=== PATIENT | female | born 1940 | race Caucasian/White ===

== ENCOUNTER 2022-10-26 12:40 | Outpatient (REF) | payer MEDICARE, SELFPAY ==
[2022-10-26 13:17] LABS: Basophils Absolute Auto 0.05 K/uL (0.00-0.30); Basophils Percent Auto 0.8 % (0.0-3.0); Eosinophils Absolute Auto 0.23 K/uL (0.00-0.50); Eosinophils Percent Auto 3.6 % (0.0-7.0); Hematocrit 39.2 % (33.0-51.0); Hemoglobin* 12.9 gm/dL (12.0-16.0); Immature Granulocytes Abs Auto 0.01 K/uL (0.00-0.30); Immature Granulocytes Pct Auto 0.2 %; Lymphocytes Percent Auto 13.4 % (20-44); Mean Corpuscular HGB Conc 33 gm/dL (32-36); Mean Corpuscular Hemoglobin 32 pg (26-34); Mean Corpuscular Volume 98 fL (80-100); Monocytes Percent Auto 11.7 % (0.0-11.0); Neutrophils Absolute Auto 4.47 K/uL (1.7-7.0); Neutrophils Percent Auto 70.3 % (42.0-72.0); Platelet Count* 272 K/uL (140-440); RDW Coefficient of Variation % 13.7 % (11.5-15.5); White Blood Count* 6.35 K/uL (4.50-11.00)
[2022-10-26 13:18] LABS: Albumin* 4.1 g/dL (3.3-5.0); Chloride* 101 mmol/L (96-114)
[2022-10-26 13:19] LABS: Potassium* 5.4 mmol/L (3.6-5.1); Sodium* 136 mmol/L (135-149)
[2022-10-26 13:21] LABS: Aspartate Amino Transferase* 48 U/L (12-35); Bilirubin Total* 1.8 mg/dL (0.1-1.5); Blood Urea Nitrogen* 30 mg/dL (7-30); Carbon Dioxide* 28 mmol/L (20-32); Creatinine* 1.2 mg/dL (0.5-1.5); Estimated Glomerular Filt Rate 45 ml/min; Total Protein* 7.2 g/dL (6.0-8.3)
[2022-10-26 13:22] LABS: Alanine Aminotransferase* 25 U/L (4-35); Alkaline Phosphatase* 294 U/L (40-150); Calcium* 9.3 mg/dL (8.4-10.6); Glucose* 104 mg/dL (60-115)
[2022-10-26 13:32] LABS: Slide Review Reflex No
== END 2022-10-26 12:41 | disposition home or self-care (01) ==
LOC: NPINS 12:40
PROVIDERS: PCP Family Medicine; Visit Provider Internal Medicine
DX: I48.20 Chronic atrial fibrillation, unspecified (principal); I42.8 Other cardiomyopathies
CPT/HCPCS: 80053; 85025

== ENCOUNTER 2022-12-16 04:08 | Outpatient (CLI) | payer MEDICARE, SELFPAY | END 2022-12-16 04:09 | disposition home or self-care (01) | LOC: AMB 12-18 09:47 | PROVIDERS: PCP Family Medicine; Visit Provider Family Medicine | DX: R53.1 Weakness (principal); R20.0 Anesthesia of skin; R20.2 Paresthesia of skin | CPT/HCPCS: A0425; A0427 ==

== ENCOUNTER 2022-12-16 04:56 | Emergency (ER) | payer MEDICARE, SELFPAY ==
[2022-12-16 05:00] VITALS: BP 123/72; PULSE 80; RESP 16; TEMP 36.5; O2SAT 99
--- NOTE | 2022-12-16 05:20 | ED.GENADULT ---
HPI - General Adult General Chief complaint: Weakness Stated complaint: LT arm numb Time Seen by Provider: 12/16/22 05:08 Source: patient and EMS Mode of arrival: EMS History of Present Illness HPI narrative: 82-year-old female presents to the emergency department with feeling of numbness and inability to work her fingers on her left hand. Last known well at midnight, arrives at 5:00 a.m.. Awoke at 2:00 a.m. a notice symptoms. Has not taken aspirin or any other interventions. She does have a known history of AFib, no prior history of stroke. She has been off of her Eliquis for the last couple of months due to concerns with a GI bleed. She actually has a colonoscopy scheduled for 3 days from now. No chest pain, no new fall, trauma or injury. No vision changes no symptoms in the right arm or either leg. No recent illness, fever. No confusion, no speech changes. No prior history of similar symptoms. I evaluated patient and just as I was coming to put in orders received a call that our CT scanner had just went down and is anticipated to be down for some time. We had been having some intermittent issues with this. Because of this I talked to the patient and do feel like time lead this is of the essence. She is not in a thrombosed lytic window and her NIH scale would only be around 1, but I do think that she needs a CT angio and further workup. Patient is agreeable to transfer. Since her cardiology team works out of [email or web address], she requests [facility]. I call right away for transfer. This took about 20-25 minutes to coordinate. I know her well from her baseline as she was a previous patient of mine in the clinic. Past medical history notable for AFib, hypothyroidism, cardiomyopathy, mitral valve heart disease, chronic congestive heart failure, restless leg syndrome. She has an ICD placed. Home medications currently aspirin 81 once daily, gabapentin for restless legs, Mirapex, simvastatin, spironolactone, torsemide and potassium. She also has midodrine from Cardiology. Allergies are to spironolactone causing hyperkalemia repair in all causing nausea sulfas causing swelling of the feet and a rash and contrast dye causing kidney injury. Socially she is a nonsmoker, still lives independently in [place]. No alcohol use. Related Data Home Medications Medication Instructions Recorded Confirmed aspirin 81 mg tablet,delayed 81 mg PO QDAY 07/23/22 11/26/22 release (Adult Low Dose Aspirin) betamethasone dipropionate 0.05 % 1 applic topical BID PRN 07/23/22 11/26/22 topical cream potassium chloride 20 mEq 20 meq PO BID 07/23/22 11/26/22 tablet,extended release(part/cryst) (Klor-Con M) pramipexole 0.5 mg tablet See Rx Instructions PO .Bedtime as 07/23/22 11/26/22 needed PRN simvastatin 20 mg tablet 20 mg PO QDAY 07/23/22 11/26/22 spironolactone 25 mg tablet 12.5 mg PO DAILY 07/23/22 11/26/22 midodrine 10 mg tablet 10 mg PO TID 11/26/22 torsemide 20 mg tablet 40 mg PO DAILY 11/26/22 11/26/22 Previous Rx's Medication Instructions Recorded gabapentin 100 mg capsule See Rx Instructions .Route 10/09/22 .COMPLEX #90 caps Allergies Allergy/AdvReac Type Severity Reaction Status Date / Time Sulfa (Sulfonamide Allergy Severe feet Verified 11/26/22 14:44 Antibiotics) swelling and rash Iodinated Contrast Media AdvReac Severe WIN Verified 11/26/22 14:44 ropinirole AdvReac Intermediate Nausea Verified 11/26/22 14:44 spironolactone AdvReac Intermediate hyperkalemi Verified 11/26/22 14:44 a [facility] Medical History Restless leg syndrome Surgical History History of atrioventricular paula ablation Status post cholecystectomy Status post hysterectomy with oophorectomy Family History Sister Depression Leukemia Brother Depression Colon cancer Family/Other Hypertrophic cardiomyopathy Melanoma Stroke Mother Colon cancer Social History Narrative: does not do illicit drugs, , nonsmoker, occasional alcohol consumption Smoking Status: Former smoker Second hand tobacco smoke exposure: No How often do you have a drink containing alcohol: never AUDIT-C Alcohol total score: 0 Non-prescribed substance use: denies use Exam Const: Vital Signs, click to edit/add: Vital Signs - 24 hr 12/16/22 05:00 12/16/22 05:35 Temperature 97.7 F 97.8 F Pulse Rate [Left P ulse Oximeter] 80 82 Respiratory Rate 16 16 Blood Pressure [Ri ght Upper Arm] 123/72 103/67 Pulse Oximetry 99 98 Oxygen Delivery Me thod Room Air Room Air Documenting provider has reviewed patient's vital signs: yes Common normals: no apparent distress and alert General appearance: cooperative, comfortable and well kempt Orientation/consciousness: Yes awake HENMT: Common normals: normocephalic and head/scalp atraumatic Head and scalp: normocephalic and atraumatic Mouth: oral and palatal mucosa normal Throat: posterior oropharynx normal Eye: Common normals: PERRL, EOMs intact bilaterally and normal visual osuna by confrontation Pupil: PERRL Neck & C-Spine: Common normals: full ROM and no lymphadenopathy Resp: Common normals: normal respiratory effort, no use of accessory muscles and clear to auscultation bilaterally Effort & inspection: able to speak in complete sentences Auscultation: clear to auscultation bilaterally Cardio: Common normals: regular rate and regular rhythm Rate: regular rate Rhythm: regular rhythm Other: Rhythm is regular today, loud blowing mid systolic murmur, suspecting mitral, but have not had time to review echo. GI: Common normals: Normal to inspection, nondistended, normoactive bowel sounds present, soft to palpation, no hepatosplenomegaly and no masses Palpation: soft and no hepatosplenomegaly Extremity: Other: Trace edema, similar to baseline. Neuro: Mounika Coma Scale: document GCS findings [place] coma scale eye opening: Spontaneous (4) [place] coma scale verbal response: Orientated (5) Mounika coma scale motor response: Obey commands (6) [place] coma scale total score: 15 Sensorium/orientation: awake and alert Cranial nerves: CN normal except as noted Coordination/balance: Normal rapid alternating movements of the distal lower extremity present (Neuro) Speech: speech normal Motor exam: no tremor noted and no movement abnormalities noted Coordination: rapid alternating movement LE normal Other: Large motor groups of the upper extremities are normal. Fine motor movement including rapid alternating movements of the left hand and fingers are abnormal. The movements are slow and clunky, uncoordinated compared to the opposite right side. She perceives her sensation to be less. 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 She has a small amount of drift on the left arm but it does not completely had the bed. Psych: Common normals: speech normal Appearance: well kempt Attitude: engaged Speech: normal speech Mood and affect: euthymic mood Insight: insight good Judgement: judgment good Skin: Common normals: no rashes or lesions noted General skin exam: no rashes or lesions noted Course Vital Signs Vital signs: Initial Vital Signs Temperature 97.7 F 12/16/22 05:00 Temperature Source Temporal Artery Scan 12/16/22 05:00 Pulse Rate 80 12/16/22 05:00 Pulse Rhythm 12/16/22 05:00 Respiratory Rate 16 12/16/22 05:00 Blood Pressure 123/72 12/16/22 05:00 Blood Pressure Mean 89 12/16/22 05:00 Blood Pressure Position Semi-Fowlers 12/16/22 05:00 Pulse Oximetry 99 12/16/22 05:00 Oxygen Delivery Method 12/16/22 05:00 Vital Signs Temperature 97.7 F 12/16/22 05:00 Pulse Rate 80 12/16/22 05:00 Respiratory Rate 16 12/16/22 05:00 Blood Pressure 123/72 12/16/22 05:00 Pulse Oximetry 99 12/16/22 05:00 Oxygen Delivery Method 12/16/22 05:00 Temperature 97.8 F 12/16/22 05:35 Pulse Rate 82 12/16/22 05:35 Respiratory Rate 16 12/16/22 05:35 Blood Pressure 103/67 12/16/22 05:35 Pulse Oximetry 98 12/16/22 05:35 Oxygen Delivery Method 12/16/22 05:35 Medical Decision Making MDM Narrative Medical decision making narrative: Brought initial exam, revealing suspected deficits in the left hand, NIH would only be about 1. She is not in the obvious window for thrombolytics. She needs a CT angio. Our CT scanner has just gone down and we do not suspect that it will be up shortly. I discussed the risks and benefits of transfer. I do think she would benefit from multidisciplinary care and insight from her clinical pharmacologist. Because of this, I have requested tertiary care center and she is agreeable, prefers [facility] as her cardiology team is based out of this facility. I am not giving additional aspirin or blood thinners until we have more information, especially in the setting of suspected recent GI bleed. She understands this. [facility] and [facility] have accepted transfer for further workup. Lab Data Lab results reviewed: Yes I reviewed the patient's lab results Lab results narrative: All labs were back after transfer. Labs: Lab Results 12/16/22 12/16/22 12/16/22 Range/Units 05:16 05:25 05:25 WBC 5.77 (4.50-11.00) K/uL RBC 3.88 L (4.00-5.20) m/uL Hgb 12.2 (12.0-16.0) gm/dL Hct 37.2 (33.0-51.0) % MCV 96 (80-100) fL MCH 31 (26-34) pg MCHC 33 (32-36) gm/dL RDW Coeff of Ran 14.5 (11.5-15.5) % Plt Count 184 (140-440) K/uL Neut % (Auto) 74.7 H (42.0-72.0) % Lymph % (Auto) 10.2 L (20-44) % Montgomery % (Auto) 10.7 (0.0-11.0) % Eos % (Auto) 3.3 (0.0-7.0) % Baso % (Auto) 0.9 (0.0-3.0) % Neut # (Auto) 4.30 (1.7-7.0) K/uL Lymph # (Auto) 0.60 L (0.90-2.90) K/uL Montgomery # (Auto) 0.60 (0.00-0.90) K/UL Eos # (Auto) 0.19 (0.00-0.50) K/uL Baso # (Auto) 0.05 (0.00-0.30) K/uL INR 1.14 H (0.91-1.10) Sodium (135-149) mmol/L Potassium (3.6-5.1) mmol/L Chloride (96-114) mmol/L Carbon Dioxide (20-32) mmol/L BUN (7-30) mg/dL Creatinine (0.5-1.5) mg/dL Estimated GFR ml/min Glucose (60-115) mg/dL Calcium (8.4-10.6) mg/dL Troponin I (0.01-0.04) ng/mL C-Reactive Protein (0.5-1.0) mg/dL POC Troponin I 0.07 H (0.01-0.04) ng/ml 12/16/22 Range/Units 05:25 WBC (4.50-11.00) K/uL RBC (4.00-5.20) m/uL Hgb (12.0-16.0) gm/dL Hct (33.0-51.0) % MCV (80-100) fL MCH (26-34) pg MCHC (32-36) gm/dL RDW Coeff of Ran (11.5-15.5) % Plt Count (140-440) K/uL Neut % (Auto) (42.0-72.0) % Lymph % (Auto) (20-44) % Montgomery % (Auto) (0.0-11.0) % Eos % (Auto) (0.0-7.0) % Baso % (Auto) (0.0-3.0) % Neut # (Auto) (1.7-7.0) K/uL Lymph # (Auto) (0.90-2.90) K/uL Montgomery # (Auto) (0.00-0.90) K/UL Eos # (Auto) (0.00-0.50) K/uL Baso # (Auto) (0.00-0.30) K/uL INR (0.91-1.10) Sodium 134 L (135-149) mmol/L Potassium 4.5 (3.6-5.1) mmol/L Chloride 99 (96-114) mmol/L Carbon Dioxide 27 (20-32) mmol/L BUN 37 H (7-30) mg/dL Creatinine 1.6 H (0.5-1.5) mg/dL Estimated GFR 32 ml/min Glucose 108 (60-115) mg/dL Calcium 9.1 (8.4-10.6) mg/dL Troponin I 0.08 H* (0.01-0.04) ng/mL C-Reactive Protein 0.5 (0.5-1.0) mg/dL POC Troponin I (0.01-0.04) ng/ml Discharge Plan Discharge Clinical Impression: Left hand weakness Patient Disposition: Xfer Other Discharge Location: [facility] Condition: Stable Prescriptions: No Action pramipexole 0.5 mg tablet See Rx Instructions PO .Bedtime as needed PRN Rx Instructions: 1-2 tabs orally BEDTIME NEEDED PRN; aspirin [Adult Low Dose Aspirin] 81 mg tablet,delayed release (DR/EC) 81 mg PO QDAY spironolactone 25 mg tablet 12.5 mg PO DAILY simvastatin 20 mg tablet 20 mg PO QDAY potassium chloride [Klor-Con M20] 20 mEq tablet,ER particles/crystals 20 meq PO BID betamethasone dipropionate 0.05 % cream 1 applic topical BID PRN torsemide 20 mg tablet 40 mg PO DAILY midodrine 10 mg tablet 10 mg PO TID gabapentin 100 mg capsule See Rx Instructions .ROUTE .COMPLEX Qty: 90 1RF Dose Instruction: TAKE 1-2 CAPSULES BY MOUTH AT BEDTIME NEEDED FOR NEOROPATHY Rx Instructions: TAKE 1-2 CAPSULES BY MOUTH AT BEDTIME NEEDED FOR NEOROPATHY Stand Alone Forms: MyHealth Info Instructions
[2022-12-16 05:33] LABS: Basophils Absolute Auto 0.05 K/uL (0.00-0.30); Basophils Percent Auto 0.9 % (0.0-3.0); Eosinophils Absolute Auto 0.19 K/uL (0.00-0.50); Eosinophils Percent Auto 3.3 % (0.0-7.0); Hematocrit 37.2 % (33.0-51.0); Hemoglobin* 12.2 gm/dL (12.0-16.0); Immature Granulocytes Abs Auto 0.01 K/uL (0.00-0.30); Immature Granulocytes Pct Auto 0.2 %; Lymphocytes Percent Auto 10.2 % (20-44); Mean Corpuscular HGB Conc 33 gm/dL (32-36); Mean Corpuscular Hemoglobin 31 pg (26-34); Mean Corpuscular Volume 96 fL (80-100); Monocytes Percent Auto 10.7 % (0.0-11.0); Neutrophils Percent Auto 74.7 % (42.0-72.0); Platelet Count* 184 K/uL (140-440); RDW Coefficient of Variation % 14.5 % (11.5-15.5); Red Blood Count 3.88 m/uL (4.00-5.20); White Blood Count* 5.77 K/uL (4.50-11.00)
[2022-12-16 05:35] VITALS: BP 103/67; PULSE 82; RESP 16; TEMP 36.6; O2SAT 98
[2022-12-16 05:37] LABS: Slide Review Reflex No
[2022-12-16 05:39] LABS: Troponin, Point-of-Care* 0.07 ng/ml (0.01-0.04)
--- NOTE | 2022-12-16 05:44 | ED.NURSE ---
Pt left by EMS to [facility].
[2022-12-16 05:46] LABS: Chloride* 99 mmol/L (96-114); Potassium* 4.5 mmol/L (3.6-5.1); Sodium* 134 mmol/L (135-149)
[2022-12-16 05:49] LABS: Creatinine* 1.6 mg/dL (0.5-1.5); Estimated Glomerular Filt Rate 32 ml/min; INR 1.14 (0.91-1.10); Prothrombin Time 15.3 Seconds
[2022-12-16 05:50] LABS: Blood Urea Nitrogen* 37 mg/dL (7-30); Calcium* 9.1 mg/dL (8.4-10.6); Carbon Dioxide* 27 mmol/L (20-32); Glucose* 108 mg/dL (60-115)
--- NOTE | 2022-12-16 05:50 | ED.NURSE ---
pt arrived via ambulance. after MD evaluation, stroke alert. CT down and was unable to reboot. Pt transported to [place] emergently. RN to RN report given to [facility]. Paperwork faxed to [facility].
[2022-12-16 05:53] LABS: C Reactive Protein* 0.5 mg/dL (0.5-1.0)
[2022-12-16 06:04] LABS: Troponin I* 0.08 ng/mL (0.01-0.04)
--- NOTE | 2022-12-16 06:06 | ED.NURSE ---
Pt daughter Nyla updated.
== END 2022-12-16 06:09 | disposition other institution (70) ==
PROVIDERS: Emergency Provider Family Medicine; PCP Family Medicine
DX: R20.0 Anesthesia of skin (principal); Z13.0 Encounter for screening for diseases of the blood and blood-forming organs and certain disorders involving the immune mechanism
CPT/HCPCS: 36415; 80048; 84484; 85025; 85610; 86140; 99283

== ENCOUNTER 2022-12-16 05:33 | Outpatient (CLI) | payer MEDICARE, SELFPAY | END 2022-12-16 05:34 | disposition home or self-care (01) | LOC: AMB 12-18 09:53 | PROVIDERS: PCP Family Medicine; Visit Provider Family Medicine | DX: R53.1 Weakness (principal) | CPT/HCPCS: A0425; A0426; A0427 ==

== ENCOUNTER 2023-05-02 11:35 | Emergency (ER) | payer MEDICARE, SELFPAY ==
[2023-05-02 11:43] VITALS: BP 129/72; RESP 16; TEMP 36.5; O2SAT 93; BMI 23.3
--- NOTE | 2023-05-02 11:57 | CRLHL7_ITS ---
For Patients: As a result of the Century Cures Act, medical imaging exams and procedure reports are released immediately into your electronic medical record. You may view this report before your referring provider. If you have questions, please contact your health care provider. INDICATION: Left leg swelling TECHNIQUE: Ultrasound venous duplex lower left extremity. Compression venous exam was performed using arzate-scale, color Doppler, and spectral Doppler analysis. COMPARISON: None. FINDINGS: Sonographic imaging demonstrates the left common femoral, deep femoral, superficial femoral, popliteal, posterior tibial and greater saphenous and the contralateral right common femoral veins to be fully compressible with normal color Doppler blood flow. IMPRESSION: Normal left lower extremity venous ultrasound, no sign of deep venous thrombosis. Dictated by Daniel Metzger MD @ 05/02/2023 12:55:59 PM (Electronically Signed)
--- NOTE | 2023-05-02 12:00 | ED_ITS ---
HPI - Skin/Abscess/Foreign Bdy General Chief complaint: Skin/Abscess/Foreign Body Stated complaint: Lower L leg infection Time Seen by Provider: 05/02/23 11:52 History of Present Illness HPI narrative: Patient is a 82-year-old woman who has been through a number of courses of antibiotics for a ulceration on the left lower extremity. Some surrounding erythema as well as discomfort. She also has significant varicose veins in the left lower extremity. She was seen in the clinic today and there was some concern that the erythema was worsening. As result patient sent in for further evaluation. We have no recent cultures. The ulceration is actually an Escher and is located on the medial aspect of the ankle. Patient describes no systemic symptoms of fevers chills night sweats nausea vomiting cough. She has worsening symptoms when she bears weight on the ankle. Related Data Home Medications Medication Instructions Recorded Confirmed betamethasone dipropionate 0.05 % 1 applic topical BID PRN 07/23/22 05/02/23 topical cream potassium chloride 20 mEq 20 meq PO BID 07/23/22 05/02/23 tablet,extended release(part/cryst) (Klor-Con M) pramipexole 0.5 mg tablet See Rx Instructions PO .Bedtime as 07/23/22 05/02/23 needed PRN simvastatin 20 mg tablet 20 mg PO QDAY 07/23/22 05/02/23 spironolactone 25 mg tablet 12.5 mg PO DAILY 07/23/22 05/02/23 torsemide 20 mg tablet 40 mg PO DAILY 11/26/22 05/02/23 apixaban 2.5 mg tablet (Eliquis) 2.5 mg PO BID 12/27/22 05/02/23 pantoprazole 40 mg tablet,delayed 40 mg PO QDAY 12/27/22 05/02/23 release Previous Rx's Medication Instructions Recorded gabapentin 100 mg capsule 100 - 200 mg (1 - 2 x 100 mg) PO 01/10/23 QPM PRN for neuropathy #90 caps midodrine 10 mg tablet 10 mg PO 3XD #270 tabs 03/21/23 amoxicillin 875 mg-potassium 1 tab PO BID 14 days #28 tabs 04/25/23 clavulanate 125 mg tablet Allergies Allergy/AdvReac Type Severity Reaction Status Date / Time Sulfa (Sulfonamide Allergy Severe feet Verified 05/02/23 09:20 Antibiotics) swelling and rash Iodinated Contrast Media AdvReac Severe WIN Verified 05/02/23 09:20 ropinirole AdvReac Intermediate Nausea Verified 05/02/23 09:20 Review of Systems Status of ROS: Reports: 10 or more systems reviewed and unremarkable except as noted in History and below [facility] Medical History Ankle abrasion with infection ?S90.519A - Abrasion, unspecified ankle, initial encounter (ICD-10) ?L08.9 - Local infection of the skin and subcutaneous tissue, unspecified (ICD-10) Restless leg syndrome ?G25.81 - Restless legs syndrome (ICD-10) Surgical History Status post hysterectomy with oophorectomy ?Z90.710 - Acquired absence of both cervix and uterus (ICD-10) ?Z90.721 - Acquired absence of ovaries, unilateral (ICD-10) Status post cholecystectomy ?Z90.49 - Acquired absence of other specified parts of digestive tract (ICD- 10) History of atrioventricular paula ablation ?Z98.890 - Other specified postprocedural states (ICD-10) Family History Sister Depression Leukemia Brother Depression Colon cancer Family/Other Hypertrophic cardiomyopathy Melanoma Stroke Mother Colon cancer Social History Narrative: does not do illicit drugs, , nonsmoker, occasional alcohol consumption Smoking Status: Former smoker Second hand tobacco smoke exposure: No How often do you have a drink containing alcohol: never AUDIT-C Alcohol total score: 0 Non-prescribed substance use: denies use Exam Narrative: Exam Narrative: EXAM GENERAL: Patient appears comfortable and well. EYES: No scleral icterus. LYMPH: No supraclavicular or cervical lymphadenopathy. SKIN: Visible skin seen during exam normal or with benign process only. EXT: Chronic venous insufficiency of the left lower extremity with significant varicosities in the left calf with a 2 cm eschar noted just superior to the malleolus medially. No obvious signs of cellulitis. HEART: Regular rate and rhythm with no murmurs, rubs, or gallops. LUNGS: Clear to auscultation bilaterally with no crackles or wheezes. ABD: Soft, non tender, non distended. PSYCH: Good eye contact, speech is not pressured. Const: Vital Signs, click to edit/add: Vital Signs - 24 hr 05/02/23 11:43 Temperature 97.7 F Respiratory Rate 16 Blood Pressure [Ri ght Upper Arm] 129/72 Pulse Oximetry 93 Oxygen Delivery Me thod Room Air Course Course Hospital Course: Patient seen examined CBC CRP ESR ultrasound of the left lower extremity and x- ray of the left ankle ordered. Vital Signs Vital signs: Initial Vital Signs Temperature 97.7 F 05/02/23 11:43 Temperature Source Temporal Artery Scan 05/02/23 11:43 Respiratory Rate 16 05/02/23 11:43 Blood Pressure 129/72 05/02/23 11:43 Blood Pressure Mean 91 05/02/23 11:43 Blood Pressure Position Sitting 05/02/23 11:43 Pulse Oximetry 93 05/02/23 11:43 Oxygen Delivery Method Room Air 05/02/23 11:43 Vital Signs Temperature 97.7 F 05/02/23 11:43 Respiratory Rate 16 05/02/23 11:43 Blood Pressure 129/72 05/02/23 11:43 Pulse Oximetry 93 05/02/23 11:43 Oxygen Delivery Method Room Air 05/02/23 11:43 Temperature 97.7 F 05/02/23 11:43 Respiratory Rate 16 05/02/23 11:43 Blood Pressure 129/72 05/02/23 11:43 Pulse Oximetry 93 05/02/23 11:43 Oxygen Delivery Method Room Air 05/02/23 11:43 MDM - Skin/Abscess/Foreign Bdy MDM Narrative Medical decision making narrative: Patient is a 82-year-old woman with a acting hypertrophied scab on the left medial ankle with surrounding erythema. She also has a varicosities. I did do an ultrasound of her lower extremity which is negative. CBC shows a normal white blood cell count x-ray of the left ankle shows no acute abnormalities. My suspicion is she has a eschar which has surrounding erythema that is not infected. I did have wound care come see her and they are recommending Mepilex and referral to the wound clinic no further antibiotics. Differential Diagnosis Differential diagnosis: Likely abscess of skin or subcutaneous tissue, dermatophytosis, urticaria, cellulitis and contact dermatitis Lab Data Labs: Lab Results 05/02/23 Range/Units 12:05 WBC 7.43 (4.50-11.00) K/uL RBC 3.89 L (4.00-5.20) m/uL Hgb 11.8 L (12.0-16.0) gm/dL Hct 36.3 (33.0-51.0) % MCV 93 (80-100) fL MCH 30 (26-34) pg MCHC 33 (32-36) gm/dL RDW Coeff of Ran 15.1 (11.5-15.5) % Plt Count 253 (140-440) K/uL Neut % (Auto) 81.7 H (42.0-72.0) % Lymph % (Auto) 7.7 L (20-44) % Stone % (Auto) 9.2 (0.0-11.0) % Eos % (Auto) 0.8 (0.0-7.0) % Baso % (Auto) 0.5 (0.0-3.0) % Neut # (Auto) 6.10 (1.7-7.0) K/uL Lymph # (Auto) 0.60 L (0.90-2.90) K/uL Stone # (Auto) 0.70 (0.00-0.90) K/UL Eos # (Auto) 0.06 (0.00-0.50) K/uL Baso # (Auto) 0.04 (0.00-0.30) K/uL Abs Immat Gran (auto) 0.01 (0.00-0.30) K/uL Imm/Tot Granulo (auto) 0.1 % ESR 20 (2-20) mm/hr Sodium 135 (135-149) mmol/L Potassium 4.0 (3.6-5.1) mmol/L Chloride 98 (96-114) mmol/L Carbon Dioxide 30 (20-32) mmol/L BUN 30 (7-30) mg/dL Creatinine 1.2 (0.5-1.5) mg/dL Estimated Creat Clear 30.14 Estimated GFR 45 ml/min Glucose 110 (60-115) mg/dL Calcium 9.2 (8.4-10.6) mg/dL C-Reactive Protein 0.6 (0.5-1.0) mg/dL Discharge Plan Discharge Clinical Impression: Leg ulcer Patient Disposition: Home, Self-Care Condition: Stable Instructions: Chronic Wounds (ED) Additional Instructions: Dressing changes as directed Compression socks as directed Follow-up with wound care clinic in the next week. Activity Level: No Restrictions Discharge Diet: Regular Prescriptions: No Action pramipexole 0.5 mg tablet See Rx Instructions PO .Bedtime as needed PRN Rx Instructions: 1-2 tabs orally BEDTIME NEEDED PRN; spironolactone 25 mg tablet 12.5 mg PO DAILY simvastatin 20 mg tablet 20 mg PO QDAY potassium chloride [Klor-Con M20] 20 mEq tablet,ER particles/crystals 20 meq PO BID betamethasone dipropionate 0.05 % cream 1 applic topical BID PRN torsemide 20 mg tablet 40 mg PO DAILY Eliquis 2.5 mg tablet 2.5 mg PO BID pantoprazole 40 mg tablet,delayed release (DR/EC) 40 mg PO QDAY amoxicillin-pot clavulanate 875-125 mg tablet 1 tab PO BID 14 Days Qty: 28 0RF gabapentin 100 mg capsule 100 - 200 mg PO QPM PRN (Reason: for neuropathy) Qty: 90 3RF midodrine 10 mg tablet 10 mg PO 3XD Qty: 270 1RF Follow Up/Referrals: Gaby Duran MD [Primary Care Provider] - Stand Alone Forms: MyHealth Info Instructions
--- NOTE | 2023-05-02 12:03 | CRLHL7_ITS ---
For Patients: As a result of the Cures Act, medical imaging exams and procedure reports are released immediately into your electronic medical record. You may view this report before your referring provider. If you have questions, please contact your health care provider. Indication: Left ankle pain Technique: Left ankle 3 views Comparison: 05/02/2023 Findings: Soft tissue calcifications. No soft tissue gas. No periostitis or cortical destruction. Lateral soft tissue swelling. Impression: No fracture or osteomyelitis. Dictated by Eusebio Jefferson MD @ 05/02/2023 1:08:04 PM (Electronically Signed)
[2023-05-02 12:18] LABS: Basophils Absolute Auto 0.04 K/uL (0.00-0.30); Basophils Percent Auto 0.5 % (0.0-3.0); Eosinophils Absolute Auto 0.06 K/uL (0.00-0.50); Eosinophils Percent Auto 0.8 % (0.0-7.0); Hematocrit 36.3 % (33.0-51.0); Hemoglobin* 11.8 gm/dL (12.0-16.0); Immature Granulocytes Abs Auto 0.01 K/uL (0.00-0.30); Immature Granulocytes Pct Auto 0.1 %; Lymphocytes Percent Auto 7.7 % (20-44); Mean Corpuscular HGB Conc 33 gm/dL (32-36); Mean Corpuscular Hemoglobin 30 pg (26-34); Mean Corpuscular Volume 93 fL (80-100); Monocytes Percent Auto 9.2 % (0.0-11.0); Neutrophils Percent Auto 81.7 % (42.0-72.0); Platelet Count* 253 K/uL (140-440); RDW Coefficient of Variation % 15.1 % (11.5-15.5); Red Blood Count 3.89 m/uL (4.00-5.20); White Blood Count* 7.43 K/uL (4.50-11.00)
[2023-05-02 12:27] LABS: Chloride* 98 mmol/L (96-114)
[2023-05-02 12:28] LABS: Sodium* 135 mmol/L (135-149)
[2023-05-02 12:30] LABS: Creatinine* 1.2 mg/dL (0.5-1.5); Est. Creatinine Clearance* 30.14; Estimated Glomerular Filt Rate 45 ml/min
[2023-05-02 12:31] LABS: Blood Urea Nitrogen* 30 mg/dL (7-30); Calcium* 9.2 mg/dL (8.4-10.6); Carbon Dioxide* 30 mmol/L (20-32); Glucose* 110 mg/dL (60-115)
[2023-05-02 12:32] LABS: Slide Review Reflex No
[2023-05-02 12:34] LABS: C Reactive Protein* 0.6 mg/dL (0.5-1.0)
[2023-05-02 13:03] LABS: Erythrocyte SedimentationRate* 20 mm/hr (2-20)
[2023-05-02 13:17] VITALS: BP 126/68; PULSE 70; RESP 16; TEMP 36.6; O2SAT 94
--- NOTE | 2023-05-02 13:18 | ED.NURSE ---
Dressing applied per instructions of wound clinic. Patient will be contacted about an appointment early next week. Cleansed with normal saline, applied Iodosorb to wound bed, and mepiborder on top. Educated patient on dressing change instructions, she should change again on Saturday. Patient was able to teach back instructions.
== END 2023-05-02 13:26 | disposition home or self-care (01) ==
PROVIDERS: Emergency Provider Internal Medicine; PCP Family Medicine
DX: L97.829 Non-pressure chronic ulcer of other part of left lower leg with unspecified severity (principal); I83.892 Varicose veins of left lower extremity with other complications
CPT/HCPCS: 36415; 73610; 80048; 85025; 85651; 86140; 93971; 99283; 99284

== ENCOUNTER 2023-05-08 12:37 | Outpatient (CLI) | payer MEDICARE, SELFPAY | END 2023-05-08 12:38 | disposition home or self-care (01) | LOC: WOUND 12:37 | PROVIDERS: PCP Family Medicine; Visit Provider Surgery | DX: I87.312 Chronic venous hypertension (idiopathic) with ulcer of left lower extremity (principal); L97.322 Non-pressure chronic ulcer of left ankle with fat layer exposed | CPT/HCPCS: 11042; 99213 ==

== ENCOUNTER 2023-05-11 14:13 | Inpatient (IN) | payer MEDICARE, SELFPAY ==
[2023-05-11] VITALS (29 sets, daily range): BP systolic 77–103; BP diastolic 36–69; PULSE 77–98; RESP 12–20; TEMP 36.6–37.2; O2SAT 86–100; BMI 23.3; BMI 27.6
[2023-05-11] MEDS: 0.9 % SODIUM CHLORIDE 1000 ml 1,000 ML IV ×2 (15:15→16:03)
[2023-05-11 15:34] LABS: Lactate* 2.4 mmol/L (0.5-1.9)
[2023-05-11 15:47] LABS: Chloride* 90 mmol/L (96-114)
[2023-05-11 15:48] LABS: Potassium* 3.7 mmol/L (3.6-5.1); Sodium* 125 mmol/L (135-149)
[2023-05-11 15:50] LABS: Creatinine* 2.1 mg/dL (0.5-1.5); Est. Creatinine Clearance* 17.22; Estimated Glomerular Filt Rate 23 ml/min
[2023-05-11 15:51] LABS: Blood Urea Nitrogen* 63 mg/dL (7-30); Calcium* 8.5 mg/dL (8.4-10.6); Carbon Dioxide* 21 mmol/L (20-32); Glucose* 96 mg/dL (60-115)
[2023-05-11 15:54] LABS: Basophils Percent Auto 0.1 % (0.0-3.0); Hematocrit 34.5 % (33.0-51.0); Hemoglobin* 11.5 gm/dL (12.0-16.0); Immature Granulocytes Pct Auto 0.2 %; Lymphocytes Percent Auto 1.4 % (20-44); Mean Corpuscular HGB Conc 33 gm/dL (32-36); Mean Corpuscular Hemoglobin 31 pg (26-34); Mean Corpuscular Volume 92 fL (80-100); Monocytes Percent Auto 1.4 % (0.0-11.0); Neutrophils Percent Auto 96.9 % (42.0-72.0); Platelet Count* 217 K/uL (140-440); RDW Coefficient of Variation % 15.2 % (11.5-15.5); Red Blood Count 3.74 m/uL (4.00-5.20); White Blood Count* 17.97 K/uL (4.50-11.00)
[2023-05-11 15:59] LABS: Slide Review Reflex No
[2023-05-11] MEDS: cefTRIAXone 1 GM in 0.9 % SODIUM CHLORIDE Mini-bag 100 ML IVPB (16:03)
[2023-05-11 16:15] LABS: C Reactive Protein* 25.1 mg/dL (0.5-1.0)
--- NOTE | 2023-05-11 16:15 | P.IMHP_ITS ---
Hospitalist- H&P: HPI History of Present Illness Date Seen: 05/11/23 Chief complaint: Ankle injury Narrative: Gisele Thompson is a 82 year old female with past medical history noted below including hx atrial fibrillation(eliquis), chf, RLS, who is presenting for evaluation of left ankle pain. The patient has been following with wound clinic for left lower extremity ulcer (Venous/Arterial?). Yesterday she had a temp of 103F. She endorses weakness. She endorses increased left ankle pain, left lower extremity swelling and erythema. She denies chest pain, sob, dysuria, abdominal pain. In the ED the patient was afebrile but hypotensive SBP of 77/43. Notable labs included wbc 18, Sodium 125, Cl 90, Cr 2.1. Lactate 2.4. She was given IVF bolus; started on vanco+ceftriaxone and admitted for further evaluation. Denies fall. Review of Systems Status of ROS: Reports: 10 or more systems reviewed and unremarkable except as noted in History and below PFSH PFS Medical History Ankle abrasion with infection ?S90.519A - Abrasion, unspecified ankle, initial encounter (ICD-10) ?L08.9 - Local infection of the skin and subcutaneous tissue, unspecified (ICD-10) Restless leg syndrome ?G25.81 - Restless legs syndrome (ICD-10) Surgical History Status post hysterectomy with oophorectomy ?Z90.710 - Acquired absence of both cervix and uterus (ICD-10) ?Z90.721 - Acquired absence of ovaries, unilateral (ICD-10) Status post cholecystectomy ?Z90.49 - Acquired absence of other specified parts of digestive tract (ICD- 10) History of atrioventricular paula ablation ?Z98.890 - Other specified postprocedural states (ICD-10) Family History Sister Depression Leukemia Brother Depression Colon cancer Family/Other Hypertrophic cardiomyopathy Melanoma Stroke Mother Colon cancer Social History Narrative: does not do illicit drugs, , nonsmoker, occasional alcohol c onsumption Smoking Status: Former smoker Second hand tobacco smoke exposure: No How often do you have a drink containing alcohol: never AUDIT-C Alcohol total score: 0 Non-prescribed substance use: denies use Meds Home Medications and Allergies Home Medications Medication Instructions Recorded Confirmed Type betamethasone dipropionate 0.05 % 1 applic topical BID PRN 07/23/22 05/11/23 History topical cream potassium chloride 20 mEq 20 meq PO BID 07/23/22 05/11/23 History tablet,extended release(part/cryst) (Klor-Con M) simvastatin 20 mg tablet 20 mg PO QDAY 07/23/22 05/11/23 History spironolactone 25 mg tablet 12.5 mg PO DAILY 07/23/22 05/11/23 History torsemide 20 mg tablet 40 mg PO DAILY 11/26/22 05/11/23 History apixaban 2.5 mg tablet (Eliquis) 2.5 mg PO BID 12/27/22 05/11/23 History pantoprazole 40 mg tablet,delayed 40 mg PO QDAY 12/27/22 05/11/23 History release Allergies Allergy/AdvReac Type Severity Reaction Status Date / Time Sulfa (Sulfonamide Allergy Severe feet Verified 05/11/23 14:30 Antibiotics) swelling and rash Iodinated Contrast Media AdvReac Severe WIN Verified 05/11/23 14:30 ropinirole AdvReac Intermediate Nausea Verified 05/11/23 14:30 Exam Narrative: Exam Narrative: Gen: no acute distress HEENT: NCAT EOMI mmm Neck: Supple CV: RRR normal s1 s2 Lungs: CTAB Abd: Soft,nt, nd Neuro: Alert, oriented, CN grossly intact; nonfocal screening?exam Psych: appropriate affect MSK: age appropriate muscle mass Skin; erythema and edema of LLE; quarter sized lesion/ulcer Const: Vital Signs, click to edit/add: Vital Signs - 24 hr 05/11/23 14:22 05/11/23 14:32 05/11/23 14:33 Temperature 98.9 F Pulse Rate 80 82 Pulse Rate [Pulse Oximeter] 86 Respiratory Rate 12 Blood Pressure 98/36 L Blood Pressure [Ri ght Upper Arm] 89/69 L Pulse Oximetry 99 99 100 Oxygen Delivery Me thod Room Air 05/11/23 14:45 05/11/23 15:00 05/11/23 15:02 Temperature Pulse Rate 79 81 77 Pulse Rate [Pulse Oximeter] Respiratory Rate Blood Pressure 77/43 L Blood Pressure [Ri ght Upper Arm] Pulse Oximetry 96 96 [facility] 15:06 05/11/23 15:15 05/11/23 15:42 Temperature Pulse Rate 80 80 81 Pulse Rate [Pulse Oximeter] Respiratory Rate Blood Pressure 81/45 L 87/49 L Blood Pressure [Ri ght Upper Arm] Pulse Oximetry 97 94 86 L Oxygen Delivery [facility] 05/11/23 15:43 05/11/23 15:45 05/11/23 16:00 Temperature Pulse Rate 80 85 88 Pulse Rate [Pulse Oximeter] Respiratory Rate Blood Pressure 92/62 Blood Pressure [Ri ght Upper Arm] Pulse Oximetry 98 97 96 Oxygen Delivery [facility] 05/11/23 16:02 Temperature Pulse Rate 85 Pulse Rate [Pulse Oximeter] Respiratory Rate Blood Pressure 92/46 L Blood Pressure [Ri ght Upper Arm] Pulse Oximetry 95 Oxygen Delivery [facility] Hospitalist - H&P: Result Labs Labs: Short CBC 05/11/23 Range/Units 15:15 WBC 17.97 H (4.50-11.00) K/uL Hgb 11.5 L (12.0-16.0) gm/dL Hct 34.5 (33.0-51.0) % Plt Count 217 (140-440) K/uL BMP 05/11/23 15:15 Sodium 125 L Potassium 3.7 Chloride 90 L Carbon Dioxide 21 BUN 63 H Creatinine 2.1 H Glucose 96 Calcium 8.5 Assessment and Plan Assessment and plan (1) Septic shock: Status: Acute (2) Leg ulcer: Status: Acute (3) Acute hyponatremia: Status: Acute (4) Acute kidney injury: Status: Acute (5) Atrial fibrillation: Status: Acute (6) Congestive heart failure, NYHA class 3: Status: Acute (7) Subclinical hypothyroidism: Status: Acute (8) Primary hypertrophic cardiomyopathy: Status: Acute (9) Implantable cardioverter-defibrillator (ICD) in situ: Status: Acute (10) Restless leg syndrome: Status: Acute (11) Hyperlipemia: Status: Acute Plan Gisele Thompson is a 82 year old female with past medical history noted below including hx atrial fibrillation(eliquis), chf, RLS, who is presenting for evaluation of left ankle pain. The patient has been following with wound clinic for left lower extremity ulcer (Venous/Arterial?). Yesterday she had a temp of 103F. She endorses weakness. She endorses increased left ankle pain, left lower extremity swelling and erythema. She denies chest pain, sob, dysuria, abdominal pain. In the ED the patient was afebrile but hypotensive SBP of 77/43. Notable labs included wbc 18, Sodium 125, Cl 90, Cr 2.1. Lactate 2.4. She was given IVF bolus; started on vanco+ceftriaxone and admitted for further evaluation. 1. Septic Shock/LLE cellulitis/Recent hx of Left ankle ulceration 2. Hx of Atrial fibrillation/CHF NYHA class 3/HOCM/ICD 3. Acute renal failure, Cr 2.1 previously normal likely secondary to #1 4. Acute hypovolemic hyponatremia with hypochloremia 5. Hx of RLS 6. HX of HLD Plan -admit to ICU -continue broad spectrum antibiotics -bolus+MIVF+albumin infusion -goal MAP>65 -serial lactate -check UA -check LLE Venous doppler US -Xray ankle -monitor I&O -continue eliquis -hold diuretics -hold antihypertensives -f/u Cxc Code Status-Full DVT ppx-on eliquis
--- NOTE | 2023-05-11 16:26 | CRLHL7_ITS ---
For Patients: As a result of the Cures Act, medical imaging exams and procedure reports are released immediately into your electronic medical record. You may view this report before your referring provider. If you have questions, please contact your health care provider. INDICATION: Swelling, warmth, redness. Evaluate for DVT. COMPARISON: Venous ultrasound on May 02, 2023 TECHNIQUE: A duplex venous ultrasound exam was performed of the left lower extremity using arzate scale imaging, color Doppler and spectral Doppler analysis. Pre- and post compression images were obtained per site specific protocol. Per the report, the court of appeals judge states there are multiple varicose veins throughout the left calf which appear patent; however, no images were provided for diagnostic interpretation. FINDINGS: Sonographic imaging of the left lower extremity demonstrates normal compressibility and color Doppler venous blood flow within the common femoral vein, proximal deep femoral vein, and the proximal greater saphenous vein. Within the thigh the femoral vein is patent and compressible. At a lower level the popliteal, posterior tibial and visualized peroneal veins also show normal compressibility and color Doppler venous blood flow. Limited imaging of the contralateral groin demonstrates a normal spectral waveform and color Doppler venous blood flow within the right common femoral vein. Subcutaneous edema in the calf. IMPRESSION: No evidence of deep vein thrombosis within the left lower extremity. Dictated by Masha Arnold MD @ 05/11/2023 6:05:07 PM (Electronically Signed)
[2023-05-11 16:31] LABS: INR 1.43 (0.91-1.10); Prothrombin Time 18.3 Seconds
--- NOTE | 2023-05-11 16:31 | CRLHL7_ITS ---
For Patients: As a result of the Cures Act, medical imaging exams and procedure reports are released immediately into your electronic medical record. You may view this report before your referring provider. If you have questions, please contact your health care provider. INDICATION: Evaluate for osteomyelitis. TECHNIQUE: Two views. COMPARISON: May 02, 2023. FINDINGS: There is no new/acute/displaced fracture identified. The osseous structures appear stable. No abnormal lucency/erosive change to suggest osteomyelitis. Slightly increasing soft tissue swelling about the lateral aspect of the ankle. Ankle mortise remains symmetric. IMPRESSION: No new/acute bony abnormality. Slight increasing lateral soft tissue swelling. Dictated by Delfino Casanova MD @ 05/11/2023 5:16:52 PM (Electronically Signed)
--- NOTE | 2023-05-11 16:31 | ED.GENADULT ---
HPI - General Adult General Date Seen: 05/11/23 Chief complaint: Extremity Pain/Injury, Lower Stated complaint: Ankle injury Time Seen by Provider: 05/11/23 14:44 Source: patient and family Mode of arrival: wheelchair Limitations: no limitations History of Present Illness HPI narrative: Patient is an 82-year-old female, presents here with her daughter, with a history of a fever, weakness, worsening left leg pain, with redness. She has a known medial malleolar ulcer, that is followed by wound care, she was in there 2-3 days ago, at that point they did think she needed antibiotics. Since then she has had a fever up to 102 at home, and the aforementioned weakness. Backed it so bad today she did think she can get around her house, which she lives independently. She called her daughter who brought her to the emergency room to be seen. She does not tell me about a history of MRSA. Nor do I see that in her chart. The pain is in her lower leg, she is treating this with some ibuprofen she took at home. No cough, shortness of breath, nausea vomiting, diarrhea, dysuria frequency, or headaches. Treatments prior to arrival: NSAID Related Data Home Medications Medication Instructions Recorded Confirmed betamethasone dipropionate 0.05 % 1 applic topical BID PRN 07/23/22 05/11/23 topical cream potassium chloride 20 mEq 20 meq PO BID 07/23/22 05/11/23 tablet,extended release(part/cryst) (Klor-Con M) simvastatin 20 mg tablet 20 mg PO QDAY 07/23/22 05/11/23 spironolactone 25 mg tablet 12.5 mg PO DAILY 07/23/22 05/11/23 torsemide 20 mg tablet 40 mg PO DAILY 11/26/22 05/11/23 apixaban 2.5 mg tablet (Eliquis) 2.5 mg PO BID 12/27/22 05/11/23 pantoprazole 40 mg tablet,delayed 40 mg PO QDAY 12/27/22 05/11/23 release Previous Rx's Medication Instructions Recorded gabapentin 100 mg capsule 100 - 200 mg (1 - 2 x 100 mg) PO 01/10/23 QPM PRN for neuropathy #90 caps midodrine 10 mg tablet 10 mg PO 3XD #270 tabs 03/21/23 pramipexole 0.5 mg tablet 0.5 - 1 mg (1 - 2 x 0.5 mg) PO QHS 05/08/23 PRN restless leg(s) #180 tabs Allergies Allergy/AdvReac Type Severity Reaction Status Date / Time Sulfa (Sulfonamide Allergy Severe feet Verified 05/11/23 14:30 Antibiotics) swelling and rash Iodinated Contrast Media AdvReac Severe WIN Verified 05/11/23 14:30 ropinirole AdvReac Intermediate Nausea Verified 05/11/23 14:30 Review of Systems Status of ROS: Reports: 10 or more systems reviewed and unremarkable except as noted in History and below [facility] Medical History Ankle abrasion with infection ?S90.519A - Abrasion, unspecified ankle, initial encounter (ICD-10) ?L08.9 - Local infection of the skin and subcutaneous tissue, unspecified (ICD-10) Restless leg syndrome ?G25.81 - Restless legs syndrome (ICD-10) Surgical History Status post hysterectomy with oophorectomy ?Z90.710 - Acquired absence of both cervix and uterus (ICD-10) ?Z90.721 - Acquired absence of ovaries, unilateral (ICD-10) Status post cholecystectomy ?Z90.49 - Acquired absence of other specified parts of digestive tract (ICD-10) History of atrioventricular paula ablation ?Z98.890 - Other specified postprocedural states (ICD-10) Family History Sister Depression Leukemia Brother Depression Colon cancer Family/Other Hypertrophic cardiomyopathy Melanoma Stroke Mother Colon cancer Social History Narrative: does not do illicit drugs, , nonsmoker, occasional alcohol consumption Smoking Status: Former smoker Second hand tobacco smoke exposure: No How often do you have a drink containing alcohol: never AUDIT-C Alcohol total score: 0 Non-prescribed substance use: denies use Exam Narrative: Exam Narrative: Patient is seen in room 1, she looks a little pale, but nontoxic to me. She is answering questions appropriately oriented x3. GCS is 15/15. Her pupils are equal round reactive to light, TMs are normal bilaterally her oropharynx is normal, there is no adenopathy anterior posterior chains, her neck is supple. Chest has good air entry bilaterally with occasional crackles in the bases, I do not detect any see dullness to percussion. Heart sounds no clicks murmurs or gallops are noted. No S3-S4 her abdomen is soft, there is no guarding no organomegaly, bowel sounds are normal pelvis is normal, she has a fair bit a redness coming up her left leg, from her medial malleolar and then down into her foot. Is swollen, and tender and warm. It is about to the mid lower leg, that she has another area on her left medial hamstrings area that is red by 10 x 5 cm. No inguinal lymphadenopathy is noted she moves her foot otherwise normal, at the midpoint of her lower leg redness there is an area of a medial malleolar ulcer. Const: Vital Signs, click to edit/add: Vital Signs - 24 hr 05/11/23 14:22 05/11/23 14:32 05/11/23 14:33 Temperature 98.9 F Pulse Rate 80 82 Pulse Rate [Pulse Oximeter] 86 Respiratory Rate 12 Blood Pressure 98/36 L Blood Pressure [Ri ght Upper Arm] 89/69 L Pulse Oximetry 99 99 100 O[facility] Room Air 05/11/23 14:45 05/11/23 15:00 05/11/23 15:02 Temperature Pulse Rate 79 81 77 Pulse Rate [Pulse Oximeter] Respiratory Rate Blood Pressure 77/43 L Blood Pressure [Ri ght Upper Arm] Pulse Oximetry 96 96 91 Oxygen [facility] 05/11/23 15:06 05/11/23 15:15 05/11/23 15:42 Temperature Pulse Rate 80 80 81 Pulse Rate [Pulse Oximeter] Respiratory Rate Blood Pressure 81/45 L 87/49 L Blood Pressure [Ri ght Upper Arm] Pulse Oximetry 97 94 86 L [facility]xygen [facility] 05/11/23 15:43 05/11/23 15:45 05/11/23 16:00 Temperature Pulse Rate 80 85 88 Pulse Rate [Pulse Oximeter] Respiratory Rate Blood Pressure 92/62 Blood Pressure [Ri ght Upper Arm] Pulse Oximetry 98 97 96 Oxygen Delivery [facility] 05/11/23 16:02 Temperature Pulse Rate 85 Pulse Rate [Pulse Oximeter] Respiratory Rate Blood Pressure 92/46 L Blood Pressure [Ri ght Upper Arm] Pulse Oximetry 95 Oxygen Delivery Me thod Documenting provider has reviewed patient's vital signs: yes Course Course Hospital Course: Her blood pressure was very soft initially, we gave her 2 L of fluid with marked improvement of her blood pressure at least 15 point mercury on the systolic side. Initial lactate was elevated at 2.4 which makes 1 think of early sepsis. She is anticoagulated on the apixaban. White count also elevated, BUN and creatinine also elevated consistent with acute kidney injury. Consultations Consultation #1: I spoke to the hospitalist, Dr. Dawson, we will admit with a diagnosis of cellulitis, fever, weakness, and also hyponatremia. Vital Signs Vital signs: Initial Vital Signs Temperature 98.9 F 05/11/23 14:22 Temperature Source Temporal Artery Scan 05/11/23 14:22 Pulse Rate 86 05/11/23 14:22 Respiratory Rate 12 05/11/23 14:22 Blood Pressure 89/69 L 05/11/23 14:22 Blood Pressure Mean 75 05/11/23 14:22 Blood Pressure Position Supine 05/11/23 14:22 Pulse Oximetry 99 05/11/23 14:22 Oxygen Delivery Method Room Air 05/11/23 14:22 Vital Signs Temperature 98.9 F 05/11/23 14:22 Pulse Rate 86 05/11/23 14:22 Respiratory Rate 12 05/11/23 14:22 Blood Pressure 89/69 L 05/11/23 14:22 Pulse Oximetry 99 05/11/23 14:22 Oxygen Delivery Method Room Air 05/11/23 14:22 Temperature 98.9 F 05/11/23 14:22 Pulse Rate 85 05/11/23 16:02 Respiratory Rate 12 05/11/23 14:22 Blood Pressure 92/46 L 05/11/23 16:02 Pulse Oximetry 95 05/11/23 16:02 Oxygen Delivery Method Room Air 05/11/23 14:22 Medical Decision Making MDM Narrative Medical decision making narrative: Life-threatening differential diagnosis is include meningitis, encephalitis, pneumonia, intra-abdominal infection, bacteremia, other differential diagnosis include but are not limited to viral upper respiratory tract infection, strep, urinary tract infection, skin infection, osteomyelitis, influenza, fungal infections, diskitis, epidural abscess, or fever of unknown origin. Life-threatening differential diagnosis considered include stroke, coronary artery disease, pneumonia, and heart failure. Other differential diagnosis include but are not limited to electrolyte imbalances, anemia, medication reactions, and urinary tract infection Medical Records Medical records reviewed: Yes I reviewed the patient's medical records Lab Data Lab results reviewed: Yes I reviewed the patient's lab results Labs: Lab Results 05/11/23 Range/Units 15:15 WBC 17.97 H (4.50-11.00) K/uL RBC 3.74 L (4.00-5.20) m/uL Hgb 11.5 L (12.0-16.0) gm/dL Hct 34.5 (33.0-51.0) % MCV 92 (80-100) fL MCH 31 (26-34) pg MCHC 33 (32-36) gm/dL RDW Coeff of Ran 15.2 (11.5-15.5) % Plt Count 217 (140-440) K/uL Neut % (Auto) 96.9 H (42.0-72.0) % Lymph % (Auto) 1.4 L (20-44) % [place] % (Auto) 1.4 (0.0-11.0) % Eos % (Auto) 0.0 (0.0-7.0) % Baso % (Auto) 0.1 (0.0-3.0) % Neut # (Auto) 17.40 H (1.7-7.0) K/uL Lymph # (Auto) 0.30 L (0.90-2.90) K/uL [place] # (Auto) 0.30 (0.00-0.90) K/UL Eos # (Auto) 0.00 (0.00-0.50) K/uL Baso # (Auto) 0.00 (0.00-0.30) K/uL Abs Immat Gran (auto) 0.00 (0.00-0.30) K/uL Imm/Tot Granulo (auto) 0.2 % Sodium 125 L (135-149) mmol/L Potassium 3.7 (3.6-5.1) mmol/L Chloride 90 L (96-114) mmol/L Carbon Dioxide 21 (20-32) mmol/L BUN 63 H (7-30) mg/dL Creatinine 2.1 H (0.5-1.5) mg/dL Estimated Creat Clear 17.22 Estimated GFR 23 ml/min Glucose 96 (60-115) mg/dL Lactate 2.4 H (0.5-1.9) mmol/L Calcium 8.5 (8.4-10.6) mg/dL C-Reactive Protein 25.1 H (0.5-1.0) mg/dL Discharge Plan Discharge Clinical Impression: Acute kidney injury, Fever, Cellulitis, Acute hyponatremia Patient Disposition: Admitted As Observation Prescriptions: No Action spironolactone 25 mg tablet 12.5 mg PO DAILY simvastatin 20 mg tablet 20 mg PO QDAY potassium chloride [Klor-Con M20] 20 mEq tablet,ER particles/crystals 20 meq PO BID betamethasone dipropionate 0.05 % cream 1 applic topical BID PRN Hold Instructions: No longer using torsemide 20 mg tablet 40 mg PO DAILY Eliquis 2.5 mg tablet 2.5 mg PO BID pantoprazole 40 mg tablet,delayed release (DR/EC) 40 mg PO QDAY gabapentin 100 mg capsule 100 - 200 mg PO QPM PRN (Reason: for neuropathy) Qty: 90 3RF midodrine 10 mg tablet 10 mg PO 3XD Qty: 270 1RF pramipexole 0.5 mg tablet 0.5 - 1 mg PO QHS PRN (Reason: restless leg(s)) Qty: 180 3RF Follow Up/Referrals: Gaby Duran MD [Primary Care Provider] -
[2023-05-11] MEDS: MORPHINE 2 MG/ML inj IVP (16:43)
[2023-05-11] MEDS: ACETAMINOPHEN 500 MG TABLET 1000 MG PO (16:52)
[2023-05-11] MEDS: 0.9 % SODIUM CHLORIDE 1000 ml 1,000 ML 100 ML IV (18:31)
[2023-05-11] MEDS: ALBUMIN HUMAN 25% 25 GM/100 ML VIAL IVPB ×2 (18:31→23:06)
[2023-05-11] MEDS: MIDODRINE HCL 5 MG TABLET 10 MG PO (18:32)
[2023-05-11 18:59] LABS: Lactate* 1.7 mmol/L (0.5-1.9)
--- NOTE | 2023-05-11 19:33 | PC.NURSE ---
Admission-- Pleasant and cooperative, alert and oriented patient was admitted to med-surg via cart. VSS and pt is afebrile. SPO2 maintained >90% on RA. She rated in pain in left leg 3 out of 10 and declined intervention for it. Left leg is reddened and was elevated on 2 pillows. Telemetry is paced. Report to SHRUTHI Melton.
[2023-05-11 19:36] LABS: Sodium* 124 mmol/L (135-149)
[2023-05-11] MEDS: APIXABAN 5 MG TABLET 2.5 MG PO (21:01)
[2023-05-11] MEDS: SODIUM CHLORIDE 0.9 % (FLUSH) 10 ML SYRINGE 5 ML IVF (21:03)
[2023-05-11] MEDS: SODIUM CHLORIDE 1 GM TABLET PO (21:03)
[2023-05-11] MEDS: MELATONIN 3 MG TABLET PO (22:27)
[2023-05-11] MEDS: ACETAMINOPHEN 325 MG TABLET 650 MG PO (22:27)
[2023-05-11] MEDS: OXYCODONE 5 MG TABLET PO (23:11)
[2023-05-12] VITALS (18 sets, daily range): BP systolic 90–106; BP diastolic 46–73; PULSE 78–91; RESP 16–22; TEMP 36.1–36.9; O2SAT 93–100
[2023-05-12 05:06] LABS: Appearance Urine Clear (Clear); Bilirubin Urine 2+ (Negative); Color Urine Amber (Yellow); Glucose Urine Negative (Negative)
[2023-05-12 05:07] LABS: Bacteria Urine Moderate; Blood Urine Negative (Negative); Ketones Urine Trace (Negative); Leukocyte Esterase Urine Trace (Negative); Nitrite Urine Positive (Negative); Protein Urine 1+ (Negative); RBC Urine 0-2 (0-2); Squamous Epithelial Cell Urine Few (None-Few)
[2023-05-12 05:08] LABS: Hyaline Casts Urine Few (None-Few); Mucus Urine Few
--- NOTE | 2023-05-12 06:51 | PC.NURSE ---
Pt pleasant and cooperative. VSS B/P on the low side. Was given albumin x1 and 1000cc bolus and still pressures remain soft. No c/o of dizzyness or lightheadedness, Has remained afebrile all shift. Left ankle is red swollen and painful. redness was outlined and it has not gone past out line to the point. Pt is up with 1 and gait belt and ambulated to the BR several times during the night. Urine is dark haider in color. slight odor. UA did come back +.
[2023-05-12 07:06] LABS: Basophils Percent Auto 0.1 % (0.0-3.0); Hematocrit 29.6 % (33.0-51.0); Hemoglobin* 9.8 gm/dL (12.0-16.0); Immature Granulocytes Pct Auto 0.4 %; Lymphocytes Percent Auto 2.1 % (20-44); Mean Corpuscular HGB Conc 33 gm/dL (32-36); Mean Corpuscular Hemoglobin 30 pg (26-34); Mean Corpuscular Volume 92 fL (80-100); Monocytes Percent Auto 4.2 % (0.0-11.0); Neutrophils Percent Auto 93.2 % (42.0-72.0); Platelet Count* 190 K/uL (140-440); RDW Coefficient of Variation % 15.2 % (11.5-15.5); Red Blood Count 3.22 m/uL (4.00-5.20)
[2023-05-12 07:15] LABS: Slide Review Reflex No
[2023-05-12 07:33] LABS: Albumin* 2.8 g/dL (3.3-5.0); Chloride* 96 mmol/L (96-114); Potassium* 3.7 mmol/L (3.6-5.1); Sodium* 125 mmol/L (135-149)
[2023-05-12 07:35] LABS: Bilirubin Total* 4.2 mg/dL (0.1-1.5); Creatinine* 2.1 mg/dL (0.5-1.5); Est. Creatinine Clearance* 17.22; Estimated Glomerular Filt Rate 23 ml/min
[2023-05-12 07:36] LABS: Alanine Aminotransferase* 16 U/L (4-35); Alkaline Phosphatase* 112 U/L (40-150); Aspartate Amino Transferase* 36 U/L (12-35); Blood Urea Nitrogen* 68 mg/dL (7-30); Carbon Dioxide* 17 mmol/L (20-32); Glucose* 94 mg/dL (60-115); Total Protein* 5.4 g/dL (6.0-8.3)
[2023-05-12 08:32] LABS: Phosphorus* 4.5 mg/dL (2.5-4.5)
[2023-05-12 08:33] LABS: Magnesium* 1.8 mg/dL (1.5-2.6)
[2023-05-12 08:34] LABS: Lactate* 1.4 mmol/L (0.5-1.9)
[2023-05-12] MEDS: APIXABAN 5 MG TABLET 2.5 MG PO ×2 (08:37→20:56)
[2023-05-12] MEDS: SODIUM CHLORIDE 1 GM TABLET PO ×3 (08:38→18:19)
[2023-05-12] MEDS: 0.9 % SODIUM CHLORIDE 1000 ml 1,000 ML 100 ML IV ×2 (08:38→18:51)
[2023-05-12] MEDS: CEFAZOLIN 1 GM in 0.9 % SODIUM CHLORIDE Mini-bag 100 ML IVPB ×2 (08:38→20:56)
[2023-05-12] MEDS: SODIUM CHLORIDE 0.9 % (FLUSH) 10 ML SYRINGE 5 ML IVF ×2 (08:39→20:56)
[2023-05-12 08:48] LABS: Troponin I* 0.15 ng/mL (0.01-0.04)
[2023-05-12] MEDS: OMEPRAZOLE 20 MG CAPSULE DR 40 MG PO (08:48)
[2023-05-12 08:49] LABS: Troponin I* 0.16 ng/mL (0.01-0.04)
[2023-05-12] MEDS: MIDODRINE HCL 5 MG TABLET 10 MG PO ×3 (08:49→18:19)
[2023-05-12 12:46] LABS: Sodium* 127 mmol/L (135-149)
[2023-05-12 13:04] LABS: Troponin I* 0.18 ng/mL (0.01-0.04)
--- NOTE | 2023-05-12 17:09 | P.IMPN_ITS ---
Progress Note: A&P Assessment and plan (1) Septic shock: Problem details: Improving. Status: Acute (2) Leg ulcer: Problem details: Wound cultures not obtained. Status: Acute (3) Acute hyponatremia: Problem details: Sodium is low as 124, slowly improving to 127 later on 05/12/2023. Status: Acute (4) Acute kidney injury: Status: Acute (5) Atrial fibrillation: Status: Inactive (6) Congestive heart failure, NYHA class 3: Status: Inactive (7) Subclinical hypothyroidism: Status: Inactive (8) Primary hypertrophic cardiomyopathy: Status: Inactive (9) Implantable cardioverter-defibrillator (ICD) in situ: Status: Inactive (10) Restless leg syndrome: Status: Inactive (11) Hyperlipemia: Status: Inactive Plan 1. 2 blood cultures grew out Gram-negative rods. Presently on ceftriaxone and vancomycin. Clinically improved. 2. Will continue with IV antibiotics as presently instituted and consider stopping the vancomycin once we obtain more definitively the ID and sensitivities of the affecting organism. 3. Will reassess the wound. 4. Continue with fluid restriction and sodium chloride tablet administration, monitoring sodium response. 5. Continue with other supportive efforts. 6. Reviewed with patient. She is agreeable. Continue with current plan of care. Time Spent With Patient Total time spent: 35 minutes Subjective Time Seen by Provider: 09:00 Date Seen: 05/12/23 Interval history: Hospital day 2. 82-year-old woman who presented with septic shock. Source of sepsis presumed related to medial malleolar ulcer infection. Also has significant hyponatremia. Presented with fever and increased left ankle pain. White count was elevated 18 and sodium was as low as 124. No other localizing symptoms such as dysuria, urgency, frequency, hematuria, abdominal pain, cough, shortness of breath. She indicates she feels improved today compared to when she 1st presented. Exam Narrative: Exam Narrative: Assess her in her hospital room. Appears comfortable and in no acute distress. Vision and hearing are grossly normal. Alert and oriented to self, place, time, situation. Friendly, cooperative, articulate. Mood and affect are congruent. Neck is supple. Lungs are clear to auscultation. Heart tones with regular rhythm normal S1-S2 without murmur, gallop, rub. Abdomen with active bowel sounds, soft, nontender. Extremities without edema. No focal motor neurologic deficits. I did not re-examine her wound today. Ultrasound of the lower extremity demonstrated no acute deep venous thrombosis. Ankle x-ray demonstrated no obvious osteomyelitis. No other acute abnormalities. Some soft tissue swelling noted. Const: Vital Signs, click to edit/add: Vital Signs - 24 hr 05/11/23 17:15 05/11/23 17:45 05/11/23 18:00 Temperature 98.1 F 98.1 F Pulse Rate 81 Pulse Rate [Pulse Oximeter] 91 91 Respiratory Rate 16 16 Blood Pressure [Le ft Arm] Blood Pressure [Ri ght Arm] 103/54 L 103/54 L Pulse Oximetry 95 94 94 Oxygen Delivery Me thod Room Air Room Air 05/11/23 19:00 05/11/23 20:00 05/11/23 22:30 Temperature 97.9 F 98 F Pulse Rate 78 Pulse Rate [Pulse Oximeter] 87 98 Respiratory Rate 18 16 Blood Pressure [Le ft Arm] Blood Pressure [Ri ght Arm] 90/66 86/65 L Pulse Oximetry [facility] [address] [facility] 05/11/23 22:49 05/11/23 23:46 05/12/23 02:00 Temperature 98 F 98 F Pulse Rate 79 Pulse Rate [Pulse Oximeter] 84 79 Respiratory Rate 20 16 Blood Pressure [Le ft Arm] Blood Pressure [Ri ght Arm] 86/65 L 92/48 L Pulse Oximetry 97 [address] [facility] [address] 05/12/23 04:00 05/12/23 06:00 05/12/23 07:00 Temperature 97.9 F 97.9 F Pulse Rate Pulse Rate [Pulse Oximeter] 86 82 86 Respiratory Rate 16 16 18 Blood Pressure [Le ft Arm] Blood Pressure [Ri ght Arm] 92/46 L 92/48 L Pulse Oximetry 95 [address] [facility] [address] 05/12/23 07:15 05/12/23 08:00 05/12/23 10:00 Temperature 98.1 F 97.5 F L Pulse Rate 80 Pulse Rate [Pulse Oximeter] 84 86 Respiratory Rate 22 18 Blood Pressure [Le ft Arm] 99/56 L Blood Pressure [Ri ght Arm] 98/62 Pulse Oximetry 94 [address] [facility] [address] 05/12/23 12:00 05/12/23 12:42 05/12/23 16:00 Temperature 97.7 F 96.9 F L Pulse Rate Pulse Rate [Pulse Oximeter] 85 85 78 Respiratory Rate 18 18 18 Blood Pressure [Le ft Arm] Blood Pressure [Ri ght Arm] 90/73 106/67 Pulse Oximetry 98 100 Oxygen Delivery Me thod Room Air Room Air Documenting provider has reviewed patient's vital signs: yes Labs Labs: Laboratory Results - last 24 hr 05/11/23 05/11/23 05/12/23 17:23 18:50 06:10 WBC 16.20 H RBC 3.22 L Hgb 9.8 L Hct 29.6 L MCV 92 MCH 30 MCHC 33 RDW Coeff of Ran 15.2 Plt Count 190 Neut % (Auto) 93.2 H Lymph % (Auto) 2.1 L [place] % (Auto) 4.2 Eos % (Auto) 0.0 Baso % (Auto) 0.1 Neut # (Auto) 15.10 H Lymph # (Auto) 0.30 L [place] # (Auto) 0.70 Eos # (Auto) 0.00 Baso # (Auto) 0.00 Abs Immat Gran (auto) 0.10 Imm/Tot Granulo (auto) 0.4 Sodium 124 L* 125 L Potassium 3.7 Chloride 96 Carbon Dioxide 17 L BUN 68 H Creatinine 2.1 H Estimated Creat Clear 17.22 Estimated GFR 23 Glucose 94 Lactate 1.7 Calcium 8.0 L Phosphorus 4.5 Magnesium 1.8 Total Bilirubin 4.2 H AST 36 H ALT 16 Alkaline Phosphatase 112 Troponin I 0.15 H* 0.16 H* Total Protein 5.4 L Albumin 2.8 L Urine Color Urine Appearance Urine pH Ur Specific [place] Urine Protein Urine Glucose (UA) Urine Ketones Urine Blood Urine Nitrite Urine Bilirubin Urine Urobilinogen Ur Leukocyte Esterase Urine RBC Urine WBC Ur Squamous Epith Cells Urine Bacteria Hyaline Casts Urine Mucus Lab Acknowledgement 05/12/23 05/12/23 05/12/23 08:02 08:04 08:30 WBC RBC Hgb Hct MCV MCH MCHC RDW Coeff of Ran Plt Count Neut % (Auto) Lymph % (Auto) [place] % (Auto) Eos % (Auto) Baso % (Auto) Neut # (Auto) Lymph # (Auto) [place] # (Auto) Eos # (Auto) Baso # (Auto) Abs Immat Gran (auto) Imm/Tot Granulo (auto) Sodium Potassium Chloride Carbon Dioxide BUN Creatinine Estimated Creat Clear Estimated GFR Glucose Lactate 1.4 Calcium Phosphorus Magnesium Total Bilirubin AST ALT Alkaline Phosphatase Troponin I Total Protein Albumin Urine Color Urine Appearance Urine pH Ur Specific [place] Urine Protein Urine Glucose (UA) Urine Ketones Urine Blood Urine Nitrite Urine Bilirubin Urine Urobilinogen Ur Leukocyte Esterase Urine RBC Urine WBC Ur Squamous Epith Cells Urine Bacteria Hyaline Casts Urine Mucus Lab Acknowledgement Test Added Test Added 05/12/23 05/12/23 12:22 Unknown WBC RBC Hgb Hct MCV MCH MCHC RDW Coeff of Ran Plt Count Neut % (Auto) Lymph % (Auto) [place] % (Auto) Eos % (Auto) Baso % (Auto) Neut # (Auto) Lymph # (Auto) [place] # (Auto) Eos # (Auto) Baso # (Auto) Abs Immat Gran (auto) Imm/Tot Granulo (auto) Sodium 127 L Potassium Chloride Carbon Dioxide BUN Creatinine Estimated Creat Clear Estimated GFR Glucose Lactate Calcium Phosphorus Magnesium Total Bilirubin AST ALT Alkaline Phosphatase Troponin I 0.18 H* Total Protein Albumin Urine Color [place] A Urine Appearance Clear Urine pH 5.0 Ur Specific [place] 1.020 Urine Protein 1+ A Urine Glucose (UA) Negative Urine Ketones Trace A Urine Blood Negative Urine Nitrite Positive A Urine Bilirubin 2+ A Urine Urobilinogen 1.0 Ur Leukocyte Esterase Trace A Urine RBC 0-2 Urine WBC 5-10 A Ur Squamous Epith Cells Few Urine Bacteria Moderate A Hyaline Casts Few Urine Mucus Few A Lab Acknowledgement
--- NOTE | 2023-05-12 19:47 | PC.NURSE ---
End of shift-- Pleasant and cooperative, alert and oriented patient. She is drowsy this evening and has a somewhat flat affect. VSS, though pressures remain soft at 90s/50s and pt remains afebrile. SPO2 maintained >90% on RA. She denied any pain today. Telemetry is paced. LS CTA. Left ankle has wound that is OTILIA. LLE remains reddened and edematous, but redness remains within previously drawn boundary. Son at bedside today and called via telephone. Both appear loving and supportive. She was up to the BR and chair with SBA and walker and tolerated it well. She denied nausea and ate 3 small meals today. She had 2x loose BMs this afternoon. Report to SHRUTHI Jimenez.
[2023-05-12] MEDS: POTASSIUM CHLORIDE 10 MEQ CAPSULE ER 20 MEQ PO (21:11)
[2023-05-13] VITALS (7 sets, daily range): BP systolic 93–107; BP diastolic 57–65; PULSE 80–95; RESP 16–20; TEMP 36–36.8; O2SAT 94–99; BMI 27.6
[2023-05-13] MEDS: ACETAMINOPHEN 325 MG TABLET 650 MG PO ×2 (03:15→17:01)
[2023-05-13] MEDS: 0.9 % SODIUM CHLORIDE 1000 ml 1,000 ML 100 ML IV ×2 (04:41→14:54)
--- NOTE | 2023-05-13 05:52 | PC.NURSE ---
[id number]: Patient pleasant and cooperative. A1/walker. Afebrile. Denies SOB/CP. Tylenol administered for 3/10 ankle pain. C/o stomach pain. Aqua K pad applied, repositioned, and aparna david offered for relief. Patient up to the BR x3 trying to have a BM but unsuccessful. Passing gas. Patient had 3 loose/soft BM during previous day. BP remain soft but stable.
[2023-05-13 06:59] LABS: Basophils Percent Auto 0.1 % (0.0-3.0); Eosinophils Percent Auto 0.6 % (0.0-7.0); Hematocrit 31.5 % (33.0-51.0); Hemoglobin* 10.7 gm/dL (12.0-16.0); Immature Granulocytes Pct Auto 1.2 %; Lymphocytes Percent Auto 2.8 % (20-44); Mean Corpuscular HGB Conc 34 gm/dL (32-36); Mean Corpuscular Hemoglobin 31 pg (26-34); Mean Corpuscular Volume 90 fL (80-100); Monocytes Percent Auto 8.2 % (0.0-11.0); Neutrophils Percent Auto 87.1 % (42.0-72.0); Platelet Count* 239 K/uL (140-440); RDW Coefficient of Variation % 15.2 % (11.5-15.5); Red Blood Count 3.49 m/uL (4.00-5.20); White Blood Count* 12.69 K/uL (4.50-11.00)
[2023-05-13 07:06] LABS: Slide Review Reflex No
[2023-05-13 07:20] LABS: Chloride* 101 mmol/L (96-114); Sodium* 127 mmol/L (135-149)
[2023-05-13 07:21] LABS: Potassium* 3.7 mmol/L (3.6-5.1)
[2023-05-13 07:23] LABS: Creatinine* 2.1 mg/dL (0.5-1.5); Est. Creatinine Clearance* 17.22; Estimated Glomerular Filt Rate 23 ml/min
[2023-05-13 07:24] LABS: Blood Urea Nitrogen* 74 mg/dL (7-30); Carbon Dioxide* 16 mmol/L (20-32); Glucose* 85 mg/dL (60-115); Phosphorus* 3.9 mg/dL (2.5-4.5)
[2023-05-13 07:25] LABS: Calcium* 8.1 mg/dL (8.4-10.6); Magnesium* 1.9 mg/dL (1.5-2.6)
[2023-05-13 07:53] LABS: C Reactive Protein* 19.6 mg/dL (0.5-1.0)
[2023-05-13] MEDS: POTASSIUM CHLORIDE 10 MEQ CAPSULE ER 20 MEQ PO ×2 (08:41→21:00)
[2023-05-13] MEDS: APIXABAN 5 MG TABLET 2.5 MG PO ×2 (08:41→21:01)
[2023-05-13] MEDS: SODIUM CHLORIDE 1 GM TABLET PO ×3 (08:41→18:00)
[2023-05-13] MEDS: OMEPRAZOLE 20 MG CAPSULE DR 40 MG PO (08:41)
[2023-05-13] MEDS: MIDODRINE HCL 5 MG TABLET 10 MG PO ×3 (08:42→18:00)
[2023-05-13] MEDS: SODIUM CHLORIDE 0.9 % (FLUSH) 10 ML SYRINGE 5 ML IVF ×2 (08:42→21:09)
[2023-05-13] MEDS: CEFAZOLIN 1 GM in 0.9 % SODIUM CHLORIDE Mini-bag 100 ML IVPB ×2 (08:43→20:59)
--- NOTE | 2023-05-13 10:52 | CT_ITS ---
Final Report Patient: PATT MONTENEGRO Facility:?[facility] Patient ID:?[id number] Site Patient ID:?[id number]. Site :?[id number] Study:?CT Chest/Abd/Pelvis w/o-05/13/2023 11:28:57 AM Ordering Physician:Deisy Block Final Report: INDICATION: E-coli bacteremia, not in urine, assess for source. TECHNIQUE: CT chest, abdomen and pelvis acquired without contrast. COMPARISON: No recent prior studies. FINDINGS: The lack of intravenous contrast reduces the sensitivity for detection of lesions of the solid abdominopelvic viscera, vascular integrity of the bowel and evaluation of the thoracic and abdominopelvic arterial and venous vasculature. CHEST: Cardiovascular structures: Multichamber cardiac enlargement. Small pericardial effusion. Top normal caliber of the pulmonary trunk, nonspecific. Pulmonary arterial hypertension is included in the differential for this finding. Multi the cardiac conduction device leads in the right and left heart, the latter via the coronary sinus. Mediastinum and radha: No mass or adenopathy. Lungs and pleura: Small, right larger than left, dependent low-density pleural effusions associated with compressive atelectasis of the adjacent dependent lower lobes. Multi segmental right lower lobe subpleural reticular opacities consistent with nonspecific minor fibrosis. Differential diagnostic considerations include asymmetrical interstitial edema. Chest wall and axilla: No mass or adenopathy. Bones: No suspicious bone lesions. Unremarkable for age. ABDOMEN AND PELVIS: Liver: Unremarkable. Gallbladder and bile ducts: Cholecystectomy. No biliary ductal dilatation. Pancreas: Nonspecific peripancreatic fat stranding present association with more extensive fat stranding/thickening of the anterior pararenal retroperitoneal fascia. Differential diagnostic considerations include pancreatitis and anasarca. Spleen: Unremarkable. Adrenal glands: Unremarkable. Kidneys: Unremarkable. GI tract: Long segmental diverticulosis of the descending and sigmoid colon without CT findings of acute diverticulitis. Normal appendix. Vascular structures: Abdominal aorta is normal in caliber. Lymph nodes: Unremarkable. Miscellaneous: Small volume and organized low-density abdominopelvic ascites. Subcutaneous fat stranding of the body wall consistent with anasarca. Pelvic Organs: Unremarkable. Bones: Disc degeneration at all levels of the lumbar spine, moderate to severe. Well maintained vertebral body heights. IMPRESSION: 1. No abdominopelvic abscess. 2. Multichamber cardiac enlargement, small dependent, right larger than left, low-density pleural effusions, small volume abdominopelvic low-density and organized ascites and findings consistent with anasarca involving the abdomen and pelvis body wall. 3. Nonspecific peripancreatic retroperitoneal fat stranding. Differential diagnostic considerations include anasarca and pancreatitis. Clinical correlation is recommended as to the latter possibility. 4. Long segmental diverticulosis of the descending and sigmoid colon without CT findings of acute diverticulitis. Normal appendix. The lack of intravenous contrast reduces the sensitivity for detection of lesions of the solid abdominopelvic viscera, vascular integrity of the bowel and evaluation of the thoracic and abdominopelvic arterial and venous vasculature. Please note that all CT scans at this facility use dose modulation, iterative reconstruction, and/or weight-based dosing when appropriate to reduce radiation dose to as low as reasonably achievable. Dictated by Melchor Tristan MD @ 05/13/2023 12:39:08 PM (Electronic Signature)
[2023-05-13] MEDS: BACITRACIN OINTMENT BULK TUBE TOPICAL (14:54)
--- NOTE | 2023-05-13 16:11 | P.IMPN_ITS ---
Progress Note: A&P Assessment and plan (1) Septic shock: Problem details: Improving. Status: Acute Assessment and Plan: Saline lock IV. (2) Leg ulcer: Problem details: Wound cultures not obtained. Daily dressing started 05/13/2023 in hospital. Followed in [facility]. Status: Acute Assessment and Plan: Started daily dressing change with bacitracin, Telfa, Kerlix. (3) Acute hyponatremia: Problem details: Sodium is low as 124, slowly improving to 127 later on 05/12/2023 and 05/13/2023. Status: Acute (4) Acute kidney injury: Problem details: Baseline creatinine 1.2. Creatinine has been 2.1 in hospital despite IV fluid administration. May be new baseline function for kidney. Status: Acute Assessment and Plan: Saline lock IV today. (5) Atrial fibrillation: Problem details: Chronic atrial fibrillation status post AVN ablation. History of GI bleed on apixaban. Status: Inactive (6) Congestive heart failure, NYHA class 3: Problem details: Chronic systolic heart failure, LVEF 40-45% per TTE 12/17/2022. Guideline directed medical therapy with spironolactone 12.5 mg daily but no beta-perico due to recurrent orthostatic lightheadedness. On midodrine 3 times daily. V olume status managed with torsemide 40 mg daily plus potassium chloride 20 mEq twice daily. Status: Inactive (7) Subclinical hypothyroidism: Status: Inactive Assessment and Plan: Continue with levothyroxine administration. (8) Primary hypertrophic cardiomyopathy: Problem details: Without outflow obstruction. Multiple family members with hypertrophic cardiomyopathy. Follows at the [facility] Status: Inactive (9) Implantable cardioverter-defibrillator (ICD) in situ: Problem details: BiV ICD placement to December 2014 Status: Inactive (10) Restless leg syndrome: Status: Inactive (11) Hyperlipemia: Status: Inactive (12) Severe tricuspid valve regurgitation: Problem details: Tricuspid annular dilatation. Status: Acute (13) Pulmonary hypertension: Problem details: Severe right ventricular chamber enlargement. Mildly decreased right ventricular systolic function. Estimated right ventricular systolic pressure 53 mmHg plus right atrial pressure. Status: Acute (14) Moderate mitral regurgitation: Status: Acute (15) Bacteremia: Problem details: Gram-negative rods growing in 2 of 2 blood cultures obtained on admission, 05/11/2023. Grew out virtually pansensitive E coli, except resistance to amoxicillin. Exact same organism grew from urine culture. Presently on cefazolin IV. Status: Acute Assessment and Plan: Consider switching to oral antibiotic on 05/14/2023. Plan 1. Reviewed above with patient. Answered her questions. 2. Call and discuss the same with the patient's daughter, Nyla, per patient request. Answered Nyla's questions to her satisfaction as well. 3. Continue with above stated plans and recommendations. Time Spent With Patient Total time spent: 50 minutes Subjective Time Seen by Provider: 10:00 Date Seen: 05/13/23 Interval history: Hospital day 2. 82-year-old woman who presented with septic shock. Source of sepsis initially presumed related to medial malleolar ulcer infection. Also has significant hyponatremia. Presented with fever and increased left ankle pain. White count was elevated 18 and sodium was as low as 124. No other localizing symptoms such as dysuria, urgency, frequency, hematuria, abdominal pain, cough, shortness of breath. Urine analysis worrisome for urinary tract infection. Started on empiric cefazolin IV. Blood culture and urine culture both grew out E coli, virtually pansensitive to antibiotics except for resistance to amoxicillin. Before the urine culture results returned with the same organism and sensitivities as the blood culture, urine culture was only growing out Serratia farticola. CT scan of chest, abdomen, pelvis without contrast demonstrated no additional possible source. She started to feel better today. Still feels weak. Still not at baseline. Denies chest heaviness, pressure, tightness, or pain. Denies dyspnea at rest, paroxysmal nocturnal dyspnea, orthopnea. Denies cough. Denies syncope or near- syncope. Denies nausea vomiting. Denies palpitations. Denies claudication. Still requires assistance with movements due to persistent weakness. Exam Narrative: Exam Narrative: Examined her in her hospital room. Appears comfortable and in no acute distress. Vision and hearing are grossly normal. Alert and oriented to self, place, time, situation. Reserved but articulate cooperative. Mood and affect are congruent. Lungs are clear to auscultation. Heart tones are chaotic with normal S1-S2. Abdomen is benign. No CVA tenderness. Bilateral lower extremity edema. Chronic venous insufficiency stasis dermatitis of bilateral extremities. Wound on left medial malleolus is clean and dry. No fluctuance, induration, or drainage. Const: Vital Signs, click to edit/add: Vital Signs - 24 hr 05/12/23 16:42 05/12/23 18:00 05/12/23 19:00 Temperature 97.6 F Pulse Rate 82 Pulse Rate [Pulse Oximeter] 83 83 Respiratory Rate 18 18 Blood Pressure [Le ft Arm] Blood Pressure [Ri ght Arm] 99/56 L Pulse Oximetry 97 Oxygen Delivery Me thod Room Air 05/12/23 20:07 05/12/23 22:07 05/12/23 22:12 Temperature 98.5 F 97.8 F Pulse Rate 87 Pulse Rate [Pulse Oximeter] 82 91 Respiratory Rate 20 20 Blood Pressure [Le ft Arm] 99/54 L 90/57 L Blood Pressure [Ri ght Arm] Pulse Oximetry 93 95 Oxygen Delivery Wi thod Room Air Room Air 05/13/23 03:11 05/13/23 07:45 05/13/23 08:09 Temperature 98.3 F 97.6 F Pulse Rate 81 Pulse Rate [Pulse Oximeter] 85 83 Respiratory Rate 20 16 Blood Pressure [Le ft Arm] 107/57 L 103/62 Blood Pressure [Ri ght Arm] Pulse Oximetry 97 95 Oxygen Delivery Wi thod Room Air Room Air 05/13/23 11:36 Temperature 97.8 F Pulse Rate Pulse Rate [Pulse Oximeter] 80 Respiratory Rate 16 Blood Pressure [Le ft Arm] 93/62 Blood Pressure [Ri ght Arm] Pulse Oximetry 99 Oxygen Delivery Wi thod Room Air Labs Labs: Laboratory Results - last 24 hr 05/13/23 06:35 WBC 12.69 H RBC 3.49 L Hgb 10.7 L Hct 31.5 L MCV 90 MCH 31 MCHC 34 RDW Coeff of Ran 15.2 Plt Count 239 Neut % (Auto) 87.1 H Lymph % (Auto) 2.8 L [place] % (Auto) 8.2 Eos % (Auto) 0.6 Baso % (Auto) 0.1 Neut # (Auto) 11.10 H Lymph # (Auto) 0.40 L [place] # (Auto) 1.00 H Eos # (Auto) 0.10 Baso # (Auto) 0.00 Abs Immat Gran (auto) 0.20 Imm/Tot Granulo (auto) 1.2 Sodium 127 L Potassium 3.7 Chloride 101 Carbon Dioxide 16 L BUN 74 H Creatinine 2.1 H Estimated Creat Clear 17.22 Estimated GFR 23 Glucose 85 Lactate 1.0 Calcium 8.1 L Phosphorus 3.9 Magnesium 1.9 C-Reactive Protein 19.[address] Chest/Ab/Pelvis: Attestation: I have reviewed the pertinent imaging results. Radiologist's impression: Radiologist interpretation not yet available. No apparent, or obvious other source for bacteremia noted.
[2023-05-13] MEDS: OXYCODONE 5 MG TABLET PO ×2 (17:00→21:00)
[2023-05-14] VITALS (8 sets, daily range): BP systolic 98–120; BP diastolic 56–77; PULSE 72–104; RESP 16–18; TEMP 36.2–36.8; O2SAT 94–99
--- NOTE | 2023-05-14 04:55 | PC.NURSE ---
Shift note: Pt is doing well ambulating with A1, walker and GB. Denied ay pain at rest, leg pain only felt with activity. No fever recorded. A/O and vitally stable. Pt was awake and requested to be transferred to the recliner at 0500. Pt had adequate sleep. Cooperate with care and treatment.
[2023-05-14 07:00] LABS: Hematocrit 35.2 % (33.0-51.0); Hemoglobin* 11.4 gm/dL (12.0-16.0); Mean Corpuscular HGB Conc 32 gm/dL (32-36); Mean Corpuscular Hemoglobin 31 pg (26-34); Mean Corpuscular Volume 94 fL (80-100); Platelet Count* 262 K/uL (140-440); Red Blood Count 3.74 m/uL (4.00-5.20); White Blood Count* 10.06 K/uL (4.50-11.00)
[2023-05-14 07:03] LABS: Slide Review Reflex No
[2023-05-14 07:30] LABS: Chloride* 103 mmol/L (96-114)
[2023-05-14 07:31] LABS: Potassium* 4.2 mmol/L (3.6-5.1); Sodium* 130 mmol/L (135-149)
[2023-05-14 07:33] LABS: Creatinine* 1.7 mg/dL (0.5-1.5); Est. Creatinine Clearance* 21.27; Estimated Glomerular Filt Rate 29 ml/min
[2023-05-14 07:34] LABS: Blood Urea Nitrogen* 65 mg/dL (7-30); Carbon Dioxide* 14 mmol/L (20-32); Glucose* 79 mg/dL (60-115)
[2023-05-14 07:35] LABS: Magnesium* 2.1 mg/dL (1.5-2.6); Phosphorus* 3.6 mg/dL (2.5-4.5)
[2023-05-14 07:49] LABS: C Reactive Protein* 12.9 mg/dL (0.5-1.0); NT Pro B Type NatriureticPept* 7840 pg/mL
[2023-05-14] MEDS: MIDODRINE HCL 5 MG TABLET 10 MG PO ×3 (08:29→18:26)
[2023-05-14] MEDS: OMEPRAZOLE 20 MG CAPSULE DR 40 MG PO (08:29)
[2023-05-14] MEDS: SODIUM CHLORIDE 1 GM TABLET PO ×3 (08:29→18:26)
[2023-05-14] MEDS: POTASSIUM CHLORIDE 10 MEQ CAPSULE ER 20 MEQ PO ×2 (08:30→20:33)
[2023-05-14] MEDS: APIXABAN 5 MG TABLET 2.5 MG PO ×2 (08:30→20:33)
[2023-05-14] MEDS: CEFAZOLIN 1 GM in 0.9 % SODIUM CHLORIDE Mini-bag 100 ML IVPB (08:30)
--- NOTE | 2023-05-14 14:24 | PM.IMPN1 ---
Progress Note: A&P Assessment and plan (1) Septic shock: Problem details: Resolved. Status: Acute (2) Leg ulcer: Problem details: Wound cultures not obtained. Is not infected. Daily dressing started 05/13/2023 in hospital. Followed in [facility] and [facility]. Status: Acute (3) Acute hyponatremia: Problem details: Sodium was as low as 124, slowly improving to 130 and 05/14/2023. Status: Acute (4) Acute kidney injury: Problem details: Baseline creatinine 1.2. Initially creatinine elevated in stable at 2.1, and on 05/14/2023 creatinine down to 1.7. Status: Acute (5) Atrial fibrillation: Problem details: Chronic atrial fibrillation status post AVN ablation. History of GI bleed on apixaban. Status: Inactive (6) Congestive heart failure, NYHA class 3: Problem details: Chronic systolic heart failure, LVEF 40-45% per TTE 12/17/2022. Guideline directed medical therapy with spironolactone 12.5 mg daily but no beta-perico due to recurrent orthostatic lightheadedness. On midodrine 3 times daily. Volume status managed with torsemide 40 mg daily plus potassium chloride 20 mEq twice daily. Status: Inactive (7) Subclinical hypothyroidism: Status: Inactive (8) Primary hypertrophic cardiomyopathy: Problem details: Without outflow obstruction. Multiple family members with hypertrophic cardiomyopathy. Follows at the [facility] Status: Inactive (9) Implantable cardioverter-defibrillator (ICD) in situ: Problem details: BiV ICD placement to December 2014 Status: Inactive (10) Restless leg syndrome: Status: Inactive (11) Hyperlipemia: Status: Inactive (12) Severe tricuspid valve regurgitation: Problem details: Tricuspid annular dilatation. Status: Acute (13) Pulmonary hypertension: Problem details: Severe right ventricular chamber enlargement. Mildly decreased right ventricular systolic function. Estimated right ventricular systolic pressure 53 mmHg plus right atrial pressure. Status: Acute (14) Moderate mitral regurgitation: Status: Acute (15) Bacteremia: Problem details: Gram-negative rods growing in 2 of 2 blood cultures obtained on admission, 05/11/2023. Grew out virtually pansensitive E coli, except resistance to amoxicillin. Exact same organism grew from urine culture. Presently on cefazolin IV. Status: Acute Plan 1. Patient again indicates preference to try to return home at all possible. 2. Transition from IV cefazolin to oral cephalexin 3. Continue with other supportive efforts 4. I anticipate patient will be ready for discharge home in the next 24-48 hours Time Spent With Patient Total time spent: 40 minutes Subjective Time Seen by Provider: 10:00 Date Seen: 05/14/23 Interval history: Hospital day 4. 82-year-old woman who presented with septic shock. Source of sepsis initially presumed related to medial malleolar ulcer infection. Also has significant hyponatremia. Presented with fever and increased left ankle pain. White count was elevated 18 and sodium was as low as 124. No other localizing symptoms such as dysuria, urgency, frequency, hematuria, abdominal pain, cough, shortness of breath. Urine analysis worrisome for urinary tract infection. Started on empiric cefazolin IV. Blood culture and urine culture both grew out E coli, virtually pansensitive to antibiotics except for resistance to amoxicillin. Before the urine culture results returned with the same organism and sensitivities as the blood culture, urine culture was only growing out Serratia farticola. CT scan of chest, abdomen, pelvis without contrast demonstrated no additional possible source. She started to feel better yesterday. Tolerating slight increase in activity today. Still not at baseline. Denies chest heaviness, pressure, tightness, or pain. Denies dyspnea at rest, paroxysmal nocturnal dyspnea, orthopnea. Denies cough. Denies syncope or near-syncope. Denies nausea vomiting. Denies palpitations. Denies claudication. Now only requires standby assistance with movements due to persistent weakness. Exam Narrative: Exam Narrative: Examined in hospital room. Appears comfortable sitting upright in chair at bedside. Alert and oriented to self, place, time, situation. Articulate and cooperative. Mood and affect are congruent. Neck supple. Lungs clear to auscultation. Fine end inspiratory rales bibasilarly. Heart tones with regular rhythm. Normal S1-S2. Abdomen with active bowel sounds soft, nontender. Extremities with bilateral lower extremity edema. Chronic venous insufficiency inflammatory changes left greater than right. Independent transfer, station, gait, standby assist only. Const: Vital Signs, click to edit/add: Vital Signs - 24 hr 05/13/23 15:00 05/13/23 15:00 05/13/23 15:00 Temperature 96.8 F L Pulse Rate 95 Pulse Rate [Pulse Oximeter] 89 89 Pulse Rate [orthos tatic lying Right Pulse Oximeter] Pulse Rate [orthos tatic sitting Righ t] Pulse Rate [orthos tatic standing Rig ht] Respiratory Rate 16 16 Blood Pressure [Le ft Arm] 101/64 Blood Pressure [Ri ght Arm] Blood Pressure [or thostatic lying Ri ght Arm] Blood Pressure [or thostatic sitting Right Arm] Blood Pressure [or thostatic standing Right Arm] Pulse Oximetry 98 Oxygen Delivery Me thod Room Air 05/13/23 19:00 05/13/23 23:00 05/13/23 23:00 Temperature 98.1 F Pulse Rate 92 Pulse Rate [Pulse Oximeter] 90 83 Pulse Rate [orthos tatic lying Right Pulse Oximeter] Pulse Rate [orthos tatic sitting Righ t] Pulse Rate [orthos tatic standing Rig ht] Respiratory Rate 16 Blood Pressure [Le ft Arm] 105/62 Blood Pressure [Ri ght Arm] Blood Pressure [or thostatic lying Ri ght Arm] Blood Pressure [or thostatic sitting Right Arm] Blood Pressure [or thostatic standing Right Arm] Pulse Oximetry 94 Oxygen Delivery Me thod Room Air 05/13/23 23:00 05/14/23 02:56 05/14/23 07:31 Temperature 98 F 98.1 F 97.2 F L Pulse Rate Pulse Rate [Pulse Oximeter] 83 81 104 H Pulse Rate [orthos tatic lying Right Pulse Oximeter] Pulse Rate [orthos tatic sitting Righ t] Pulse Rate [orthos tatic standing Rig ht] Respiratory Rate 16 16 16 Blood Pressure [Le ft Arm] 100/65 102/71 Blood Pressure [Ri ght Arm] 98/56 L Blood Pressure [or thostatic lying Ri ght Arm] Blood Pressure [or thostatic sitting Right Arm] Blood Pressure [or thostatic standing Right Arm] Pulse Oximetry 94 96 99 Oxygen Delivery Me thod Room Air Room Air Room Air 05/14/23 09:59 05/14/23 09:59 05/14/23 11:45 Temperature 97.2 F L Pulse Rate 85 Pulse Rate [Pulse Oximeter] 75 Pulse Rate [orthos tatic lying Right Pulse Oximeter] 81 Pulse Rate [orthos tatic sitting Righ t] 85 Pulse Rate [orthos tatic standing Rig ht] 87 Respiratory Rate 16 Blood Pressure [Le ft Arm] Blood Pressure [Ri ght Arm] 103/57 L Blood Pressure [or thostatic lying Ri ght Arm] 120/62 Blood Pressure [or thostatic sitting Right Arm] 117/70 Blood Pressure [or thostatic standing Right Arm] 108/77 Pulse Oximetry 96 Oxygen Delivery Me thod Room Air Documenting provider has reviewed patient's vital signs: yes Labs Labs: Laboratory Results - last 24 hr 05/14/23 06:24 WBC 10.06 RBC 3.74 L Hgb 11.4 L Hct 35.2 MCV 94 MCH 31 MCHC 32 Plt Count 262 Sodium 130 L Potassium 4.2 Chloride 103 Carbon Dioxide 14 L BUN 65 H Creatinine 1.7 H Estimated Creat Clear 21.27 Estimated GFR 29 Glucose 79 Lactate 1.0 Calcium 8.0 L Phosphorus 3.6 Magnesium 2.1 C-Reactive Protein 12.9 H NT-Pro-B Natriuret Pep 7811
[2023-05-14] MEDS: BACITRACIN OINTMENT BULK TUBE TOPICAL (15:14)
--- NOTE | 2023-05-14 20:06 | PC.NURSE ---
End of Shift: Pt AO throughout shift, pleasant and cooperative tolerating regular diet well. Ambulating with walker, gait belt, and SBA. Continent with bowel and bladder. Tolerating FR well with total input for shift of 600. Pain well-controlled throughout shift with elevation. Bandage on left lower extremity CDI.
[2023-05-14] MEDS: cephALEXin 500 MG CAPSULE PO (20:33)
[2023-05-14] MEDS: SODIUM CHLORIDE 0.9 % (FLUSH) 10 ML SYRINGE 5 ML IVF (20:34)
[2023-05-15] MEDS: MELATONIN 3 MG TABLET PO (00:13)
[2023-05-15 03:15] VITALS: BP 109/73; PULSE 80; RESP 18; TEMP 36.7; O2SAT 98
[2023-05-15 04:31] LABS: C.Difficile Negative (Negative); CDIFFEPI 027 PRESUMPTIVE NEGATIVE (Negative)
--- NOTE | 2023-05-15 06:41 | PC.NURSE ---
End of shift: A&O, pleasant and cooperative. VSS w/ sats >90% on RA. Denies pain. Pt having frequent stools throughout shift. MD aware, c-diff sample obtained. Dressing on ankle fell off, designer writer cleaned and redressed. Dressing otherwise c/d/i. Redness on left leg and ankle seems to be receding from original markings. SBA w/ walker and gait belt.
[2023-05-15 07:18] LABS: Chloride* 106 mmol/L (96-114); Potassium* 4.9 mmol/L (3.6-5.1); Sodium* 132 mmol/L (135-149)
[2023-05-15 07:21] LABS: Blood Urea Nitrogen* 50 mg/dL (7-30); Carbon Dioxide* 15 mmol/L (20-32); Creatinine* 1.2 mg/dL (0.5-1.5); Est. Creatinine Clearance* 30.14; Estimated Glomerular Filt Rate 45 ml/min; Glucose* 85 mg/dL (60-115); Phosphorus* 2.6 mg/dL (2.5-4.5)
[2023-05-15 07:22] LABS: Calcium* 8.7 mg/dL (8.4-10.6)
[2023-05-15 09:00] VITALS: BP 94/55; PULSE 82; RESP 20; TEMP 36.7; O2SAT 98
[2023-05-15] MEDS: ACETAMINOPHEN 325 MG TABLET 650 MG PO (09:10)
[2023-05-15] MEDS: POTASSIUM CHLORIDE 10 MEQ CAPSULE ER 20 MEQ PO (09:11)
[2023-05-15] MEDS: OMEPRAZOLE 20 MG CAPSULE DR 40 MG PO (09:11)
[2023-05-15] MEDS: cephALEXin 500 MG CAPSULE PO (09:11)
[2023-05-15] MEDS: APIXABAN 5 MG TABLET 2.5 MG PO (09:12)
[2023-05-15] MEDS: MIDODRINE HCL 5 MG TABLET 10 MG PO ×2 (09:13→12:31)
[2023-05-15] MEDS: SODIUM CHLORIDE 1 GM TABLET PO ×2 (09:14→12:32)
[2023-05-15] MEDS: SODIUM CHLORIDE 0.9 % (FLUSH) 10 ML SYRINGE 5 ML IVF (09:19)
--- NOTE | 2023-05-15 12:19 | PC.SOCIAL ---
Met with pt. to discuss discharge plans. Pt. will continues with her wound care through the wound care clinic but will need home care for PT, OT and med management. A referral was made to [facility] and they can open pt. to home care services on Saturday.
[2023-05-15 12:27] VITALS: BP 114/60; PULSE 86; RESP 20; TEMP 36.6; O2SAT 97
[2023-05-15] MEDS: LACTOBACILLUS ACIDOPHILUS 1 TABLET 2 TAB PO (12:32)
--- NOTE | 2023-05-15 13:02 | PC.SOCIAL ---
Pt. will discharge home with [facility] care for PT, OT, and wound care, med set up fax orders to [phone]. They will open pt. on Saturday.
--- NOTE | 2023-05-15 15:44 | P.DS_ITS ---
DS: Providers Provider Time Seen by Provider: 09:30 Date Seen: 05/15/23 Date of admission: 05/11/23 17:18 Primary care physician: Gaby Duran MD Admitting Clinician: Alexis Dawson MD Consults: 05/13/23 Consult to Occupational Therapy [CONS] Routine Comment: Reason(s) for OT Consult:: Evaluate and Treat Any Restrictions?:: No Restrictions Consult to Physical Therapy [CONS] Routine Comment: Reason(s) for PT Consult:: Evaluate and Treat Any Restrictions?:: No Restrictions Attending Physician on discharge: Umair Stout MD Date of Discharge: 05/15/23 DS: Diagnosis Discharge Diagnosis (1) Septic shock: Status: Acute Problem details: Resolved. (2) Bacteremia: Status: Acute Problem details: Gram-negative rods growing in 2 of 2 blood cultures obtained on admission, 05/11/2023. Grew out virtually pansensitive E coli, except resistance to amoxicillin. Exact same organism grew from urine culture. Presently on cefazolin IV. (3) E. coli urinary tract infection: Status: Acute (4) Acute hyponatremia: Status: Acute Problem details: Sodium was as low as 124, slowly improving to 130 and 05/14/2023. (5) Cellulitis: Status: Acute (6) Acute kidney injury: Status: Acute Problem details: Baseline creatinine 1.2. Initially creatinine elevated in stable at 2.1, and on 05/14/2023 creatinine down to 1.7. (7) Leg ulcer: Status: Acute Problem details: Wound cultures not obtained. Is not infected. Daily dressing started 05/13/2023 in hospital. Followed in [facility] and [facility]. (8) Ankle abrasion with infection: Status: Acute (9) Severe tricuspid valve regurgitation: Status: Acute Problem details: Tricuspid annular dilatation. (10) Pulmonary hypertension: Status: Acute Problem details: Severe right ventricular chamber enlargement. Mildly decreased right ventricular systolic function. Estimated right ventricular systolic pressure 53 mmHg plus right atrial pressure. (11) Moderate mitral regurgitation: Status: Acute DS: Summary Hospital Course Hospital Course: 82-year-old woman presented with septic shock. Source of sepsis initially presumed related to medial malleolar ulcer infection. Also has significant hyponatremia. Presented with fever and increased left ankle pain. White count was elevated 18 and sodium was as low as 124. No other localizing symptoms such as dysuria, urgency, frequency, hematuria, abdominal pain, cough, shortness of breath. Was started on empiric IV cefazolin and IV vancomycin. Treated with IV fluids. In a relatively short period of time patient grew out Gram-negative rods from 2 cultures. Additionally urine culture grew out Gram-negative rods. Ultimately the organism was identified as E coli for both the blood cultures and urine culture, both with the same ID and sensitivity. Additionally CT scan of chest abdomen and pelvis undertaken without contrast and demonstrated no additional source of this infection. Vital Signs improved. She is instructed to complete a full 10 days worth of IV plus oral antibiotics. Transition from IV cefazolin to oral cephalexin. IV vancomycin was stopped early on. Serum sodiums normalize closer to baseline. Her ability to move about gradually normalized although she did not ever totally normalize. We recommended consideration to transitional care services but she declined. Eighty ranges for her to go home with family support and home care support. Left medial malleolar ulcer treated with bacitracin ointment, Telfa, Kerlix wrap while in hospital. Her wound care orders per [facility]ound Clinic were reinstituted at time of discharge home. Home care to help with dressing changes until she has follow-up in the Wound Clinic. Time Spent with Patient Time attestation: Total time spent providing and/or coordinating discharge services: Exam Narrative: Exam Narrative: Examined in hospital room. Appears comfortable sitting upright in chair at bedside. Alert and oriented to self, place, time, situation. Articulate and cooperative. Mood and affect are congruent. Neck supple. Lungs clear to auscultation. Fine end inspiratory rales bibasilarly. Heart tones with regular rhythm. Normal S1-S2. Abdomen with active bowel sounds soft, nontender. Extremities with bilateral lower extremity edema. Chronic venous insufficiency inflammatory changes left greater than right. Independent transfer, station, gait, standby assist only. Const: Vital Signs, click to edit/add: Vital Signs - 24 hr 05/14/23 19:59 05/14/23 23:00 05/14/23 23:10 Temperature 97.4 F L 98.2 F Pulse Rate 79 Pulse Rate [Pulse Oximeter] 74 79 Respiratory Rate 18 16 Blood Pressure [Le ft Arm] 108/61 Blood Pressure [Ri ght Arm] Pulse Oximetry 97 94 Oxygen Delivery Me thod Room Air 05/15/23 03:15 05/15/23 09:00 05/15/23 12:27 Temperature 98.1 F 98.1 F 97.8 F Pulse Rate Pulse Rate [Pulse Oximeter] 80 82 86 Respiratory Rate 18 20 20 Blood Pressure [Le ft Arm] 109/73 Blood Pressure [Ri ght Arm] 94/55 L 114/60 Pulse Oximetry 98 98 97 Oxygen Delivery Me thod Room Air Room Air Room Air Documenting provider has reviewed patient's vital signs: yes DS: Data Data Completed and Pending Labs on day of discharge: Labs from last 24 hours 05/15/23 05/15/23 06:54 03:25 Sodium 132 L Potassium 4.9 Chloride 106 Carbon Dioxide 15 L BUN 50 H Creatinine 1.2 Estimated Creat Clear 30.14 Estimated GFR 45 Glucose 85 Calcium 8.7 Phosphorus 2.6 Stl C. diff Tox B Gene Negative Stl C. diff [id number] PRESUMPTIVE NEGATIVE Preliminary micro results at discharge 05/12/23 12:07 Blood Culture - Preliminary Blood NO GROWTH AFTER 72 HOURS 05/12/23 12:22 Blood Culture - Preliminary Blood NO GROWTH AFTER 72 HOURS Imaging Left ankle x-ray: Attestation: I have reviewed the pertinent imaging results. Radiologist's impression: IMPRESSION: No new/acute bony abnormality. Slight increasing lateral soft tissue swelling. Venous US: Attestation: I have reviewed the pertinent imaging results. Radiologist's impression: Venous duplex ultrasound of left lower extremity demonstrates no acute deep venous thrombosis. CT Chest/Ab/Pelvis: Attestation: I have reviewed the pertinent imaging results. Radiologist's impression: No source of infection identified on this exam. Discharge Plan Discharge Disposition: Home, Self-Care Date of Admission: 05/11/23 17:18 Attending Provider on Discharge: Umair Stout Primary Care Provider: Gaby Duran Condition: Improved Anticipated Discharge Date/Time: 05/15/23 13:30 Discharge Medications: New cephalexin 500 mg Capsule 500 mg PO TID 5 Days Qty: 15 0RF Lactobacillus acidophilus 0.5 mg (100 million cell) Tablet 1,000 mmu cells PO TIDWM 30 Days Qty: 100 0RF Continued spironolactone 25 mg tablet 12.5 mg PO DAILY simvastatin 20 mg tablet 20 mg PO HS torsemide 20 mg tablet 40 mg PO DAILY Eliquis 2.5 mg tablet 2.5 mg PO BID pantoprazole 40 mg tablet,delayed release (DR/EC) 40 mg PO QDAY potassium chloride 20 mEq tablet extended release 20 meq PO BID gabapentin 100 mg capsule 100 - 200 mg PO HS PRN (Reason: for neuropathy) midodrine 10 mg tablet 10 mg PO 3XD Qty: 270 1RF pramipexole 0.5 mg tablet 0.5 - 1 mg PO QHS PRN (Reason: restless leg(s)) Qty: 180 3RF Discharge Orders: Discharge Order (Routine); Ordered 05/15/23 Ordered By: Umair Stout Patient Education: Cephalexin (By mouth), Probiotic (By mouth) (Acidophilus Probiotic Blend, Culturelle,..., Urinary Tract Infection in Women (DC), Bacteremia (DC), Tricuspid Regurgitation (DC), Urinary Tract Infection in Older Adults (DC) Additional Instructions: 1. Home care referral for PT, OT, and nursing; 2. Follow-up with your primary point of care specialist in 1-2 weeks; 3. Keep appointments in [facility]; 4. Wound cares per Wound Clinic recommendations; 5. Follow-up with your claims coordinator as planned. Activity Level: No Restrictions Activity Detail: WOUND CARE FOR LEFT, MEDIAL, INFERIOR ANKLE: EVERY OTHER DAY -CLEANSER: CLEANSE WITH NORMAL SALINE -PRIMARY DRESSING: HYDROFERA BLUE [id number] TO SIZE OF WOUND; MOISTEN SLIGHTLY WITH NORMAL SALINE, WRING OUT EXCESS MOISTURE (LIKE WRINGING A TOWEL) AND COVER WOUND BED -SECONDARY DRESSING: BORDERED FOAM [id number] APPLY LAST TO COVER WOUND AND PRIMARY DRESSINGS Discharge Diet: Regular Follow Up Appointments: Gaby Duran MD [Primary Care Provider] - 05/30/23 9:30 am ([facility] for follow[facility].) Forms: [facility] Info Instructions
== END 2023-05-15 13:45 | disposition home or self-care (01) | DRG 872 ==
LOC: ED 16:38 → MEDSURG 17:20
PROVIDERS: Internal Medicine; Admitting Provider Hospitalist; Emergency Provider Family Medicine; PCP Family Medicine; Visit Provider Hospitalist
DX: A41.51 Sepsis due to Escherichia coli [E. coli] (principal); L03.116 Cellulitis of left lower limb; N39.0 Urinary tract infection, site not specified; N17.9 Acute kidney failure, unspecified; E87.1 Hypo-osmolality and hyponatremia; I42.2 Other hypertrophic cardiomyopathy; L97.329 Non-pressure chronic ulcer of left ankle with unspecified severity; I48.20 Chronic atrial fibrillation, unspecified; I50.22 Chronic systolic (congestive) heart failure; I87.2 Venous insufficiency (chronic) (peripheral); B96.20 Unspecified Escherichia coli [E. coli] as the cause of diseases classified elsewhere; S80.812A Abrasion, left lower leg, initial encounter; I27.20 Pulmonary hypertension, unspecified; Z79.01 Long term (current) use of anticoagulants; Z95.810 Presence of automatic (implantable) cardiac defibrillator; I08.1 Rheumatic disorders of both mitral and tricuspid valves; G25.81 Restless legs syndrome; E78.5 Hyperlipidemia, unspecified; E03.8 Other specified hypothyroidism
CPT/HCPCS: 36415; 71250; 73600; 74176; 80048; 80053; 81001; 83605; 83735; 83880; 84100; 84295; 84484; 85025; 85027; 85610; 86140; 87040; 87086; 87186; 87493; 93005; 93971; 97110; 97112; 97116; 97162; 97165; 97530; 97535; 99284; 99285; A9270; J0690; J0696; J2270; J3370; J7030; J7050; P9047

== ENCOUNTER 2023-05-22 15:21 | Outpatient (CLI) | payer MEDICARE, SELFPAY | END 2023-05-22 15:22 | disposition home or self-care (01) | LOC: WOUND 15:21 | PROVIDERS: PCP Family Medicine; Visit Provider Surgery | DX: I87.312 Chronic venous hypertension (idiopathic) with ulcer of left lower extremity (principal); L97.322 Non-pressure chronic ulcer of left ankle with fat layer exposed | CPT/HCPCS: 97597 ==

== ENCOUNTER 2023-05-29 15:36 | Outpatient (CLI) | payer MEDICARE, SELFPAY | END 2023-05-29 15:37 | disposition home or self-care (01) | LOC: WOUND 15:36 | PROVIDERS: PCP Family Medicine; Visit Provider Surgery | DX: I87.312 Chronic venous hypertension (idiopathic) with ulcer of left lower extremity (principal); L97.822 Non-pressure chronic ulcer of other part of left lower leg with fat layer exposed | CPT/HCPCS: 11042 ==

== ENCOUNTER 2023-05-30 10:11 | Outpatient (CLI) | payer MEDICARE, SELFPAY | END 2023-05-30 10:12 | disposition home or self-care (01) | PROVIDERS: PCP Family Medicine; Visit Provider Family Medicine | DX: E87.1 Hypo-osmolality and hyponatremia (principal); N17.9 Acute kidney failure, unspecified; I27.20 Pulmonary hypertension, unspecified; I34.0 Nonrheumatic mitral (valve) insufficiency; L97.909 Non-pressure chronic ulcer of unspecified part of unspecified lower leg with unspecified severity | CPT/HCPCS: 80048; 83880 ==

== ENCOUNTER 2023-06-05 14:28 | Outpatient (CLI) | payer MEDICARE, SELFPAY | END 2023-06-05 14:29 | disposition home or self-care (01) | LOC: WOUND 14:28 | PROVIDERS: PCP Family Medicine; Visit Provider Surgery | DX: I87.312 Chronic venous hypertension (idiopathic) with ulcer of left lower extremity (principal); L97.322 Non-pressure chronic ulcer of left ankle with fat layer exposed; Z79.01 Long term (current) use of anticoagulants | CPT/HCPCS: 11042 ==

== ENCOUNTER 2023-06-12 14:41 | Outpatient (CLI) | payer MEDICARE, SELFPAY | END 2023-06-12 14:42 | disposition home or self-care (01) | LOC: WOUND 14:42 | PROVIDERS: PCP Family Medicine; Visit Provider Surgery | DX: I87.312 Chronic venous hypertension (idiopathic) with ulcer of left lower extremity (principal); L97.322 Non-pressure chronic ulcer of left ankle with fat layer exposed; L53.8 Other specified erythematous conditions; Z79.01 Long term (current) use of anticoagulants | CPT/HCPCS: 11042 ==

== ENCOUNTER 2023-06-19 15:16 | Outpatient (CLI) | payer MEDICARE, SELFPAY | END 2023-06-19 15:17 | disposition home or self-care (01) | LOC: WOUND 15:16 | PROVIDERS: PCP Family Medicine; Visit Provider Surgery | DX: I87.312 Chronic venous hypertension (idiopathic) with ulcer of left lower extremity (principal); L97.321 Non-pressure chronic ulcer of left ankle limited to breakdown of skin; Z79.01 Long term (current) use of anticoagulants | CPT/HCPCS: 97597 ==

== ENCOUNTER 2023-06-25 10:14 | Outpatient (CLI) | payer MEDICARE, SELFPAY | END 2023-06-25 10:15 | disposition home or self-care (01) | PROVIDERS: PCP Family Medicine; Referring Provider Family Medicine; Visit Provider Family Medicine | DX: R39.89 Other symptoms and signs involving the genitourinary system (principal); B37.31 Acute candidiasis of vulva and vagina; R39.9 Unspecified symptoms and signs involving the genitourinary system; N39.0 Urinary tract infection, site not specified; B96.20 Unspecified Escherichia coli [E. coli] as the cause of diseases classified elsewhere; N89.8 Other specified noninflammatory disorders of vagina | CPT/HCPCS: 87086 ==

== ENCOUNTER 2023-06-26 15:17 | Outpatient (CLI) | payer MEDICARE, SELFPAY | END 2023-06-26 15:18 | disposition home or self-care (01) | LOC: WOUND 15:19 | PROVIDERS: PCP Family Medicine; Visit Provider Family Medicine | DX: I87.312 Chronic venous hypertension (idiopathic) with ulcer of left lower extremity (principal); L97.322 Non-pressure chronic ulcer of left ankle with fat layer exposed; Z79.01 Long term (current) use of anticoagulants | CPT/HCPCS: 11042; 87070; 87186 ==

== ENCOUNTER 2023-07-03 15:11 | Outpatient (CLI) | payer MEDICARE, SELFPAY | END 2023-07-03 15:12 | disposition home or self-care (01) | LOC: WOUND 15:11 | PROVIDERS: PCP Family Medicine; Visit Provider Surgery | DX: I87.312 Chronic venous hypertension (idiopathic) with ulcer of left lower extremity (principal); L97.322 Non-pressure chronic ulcer of left ankle with fat layer exposed | CPT/HCPCS: 11042 ==

== ENCOUNTER 2023-07-10 14:18 | Outpatient (CLI) | payer MEDICARE, SELFPAY | END 2023-07-10 14:19 | disposition home or self-care (01) | LOC: WOUND 14:18 | PROVIDERS: PCP Family Medicine; Visit Provider Surgery | DX: I87.312 Chronic venous hypertension (idiopathic) with ulcer of left lower extremity (principal); L97.322 Non-pressure chronic ulcer of left ankle with fat layer exposed | CPT/HCPCS: 29581 ==

== ENCOUNTER 2023-07-17 15:08 | Outpatient (CLI) | payer MEDICARE, SELFPAY | END 2023-07-17 15:09 | disposition home or self-care (01) | LOC: WOUND 15:08 | PROVIDERS: PCP Family Medicine; Visit Provider Surgery | DX: I87.312 Chronic venous hypertension (idiopathic) with ulcer of left lower extremity (principal); L97.322 Non-pressure chronic ulcer of left ankle with fat layer exposed | CPT/HCPCS: 97597 ==

== ENCOUNTER 2023-07-24 13:44 | Outpatient (CLI) | payer MEDICARE, SELFPAY ==
--- NOTE | 2023-07-24 14:00 | CRLHL7_ITS ---
For Patients: As a result of the Century Cures Act, medical imaging exams and procedure reports are released immediately into your electronic medical record. You may view this report before your referring provider. If you have questions, please contact your health care provider. BILATERAL LOWER EXTREMITY VENOUS INSUFFICIENCY INDICATION: Chronic venous insufficiency. TECHNIQUE: Venous insufficiency examination of bilateral lower extremity 2D and spectral analysis and color Doppler imaging. COMPARISON: Deep venous ultrasound exam of the left lower extremity on 05/11/2023 and 05/02/2023. FINDINGS: DEEP SYSTEM: RIGHT: Vessel: DVT: No. CFV: Competent. DVT: No. SFV Prox: Competent. DVT: No. SFV Mid: Competent. DVT: No. SFV Distal: Competent. DVT: No. Pop: Competent. DVT: No. PTV1: Competent. DVT: No. PTV2: Competent. LEFT: Vessel: DVT: No. CFV: Competent. DVT: No. SFV Prox: Competent. DVT: No. SFV Mid: Competent. DVT: No. SFV Distal: Competent. DVT: No. Pop: Competent. DVT: No. PTV1: Competent. DVT: No. PTV2: Competent. SUPERFICIAL SYSTEM: RIGHT: Vessel: SFJ: 9 mm. Competent. GSV Thigh Prox: 7 mm. Incompetent. 2.8/s. GSV Thigh Mid: 6 mm. Incompetent. 5/s. GSV Thigh Distal: 7 mm. Incompetent. 4.9/s. GSV Calf Prox: 5 mm. Incompetent. 3.3/s. GSV Calf Mid: 4 mm. Competent. GSV Calf Distal: 2 mm. Competent. LSV Prox: 3 mm. Competent. LSV Mid: - mm. Competent. LEFT: SFJ: Incompetent. 2.1/s. 10 mm. GSV Thigh Prox: Incompetent. 2.3/s. 9 mm. GSV Thigh Mid: Incompetent. 2.2/s. 11 mm. GSV Thigh Distal: Incompetent. 2.7. 8 mm. GSV Calf Prox: Incompetent. 2.1. 9 mm. GSV Calf Mid: Competent. 3 mm. GSV Calf Distal: Competent. 4 mm. LSV Prox: Competent. 3 mm. LSV Mid: Competent. - mm. PERFORATORS Glazing Superintendent location: Lt yolanda mid. Diameter (mm): 4. Competent Glazing Superintendent location: Lt PTV prox. Diameter (mm): 4. Competent Glazing Superintendent location: Lt PTV mid. Diameter (mm): 5. Competent Glazing Superintendent location: Lt PTV 1 distal. Diameter (mm): 3. Competent IMPRESSION: 1. No DVT or SVT in either lower extremity. 2. Extensive reflux in bilateral greater saphenous veins. 3. Multiple left-sided perforating veins. Karsten Oden M.D. Interventional Radiology/Diagnostic Radiology (IR/DR) [email or web address] MANJEET/Dictated by: Karsten Oden MD @ 07/24/2023 10:14:00 PM (Electronically Signed)
== END 2023-07-24 13:45 | disposition home or self-care (01) ==
LOC: US 13:45
PROVIDERS: PCP Family Medicine; Visit Provider Surgery
DX: I87.312 Chronic venous hypertension (idiopathic) with ulcer of left lower extremity (principal); L97.322 Non-pressure chronic ulcer of left ankle with fat layer exposed; I87.2 Venous insufficiency (chronic) (peripheral); M25.572 Pain in left ankle and joints of left foot
CPT/HCPCS: 11102; 93970; 97597

== ENCOUNTER 2023-07-24 15:11 | Outpatient (CLI) | payer MEDICARE, SELFPAY | END 2023-07-24 15:12 | disposition home or self-care (01) | LOC: WOUND 15:11 | PROVIDERS: PCP Family Medicine; Visit Provider Surgery | DX: I87.312 Chronic venous hypertension (idiopathic) with ulcer of left lower extremity (principal); L97.322 Non-pressure chronic ulcer of left ankle with fat layer exposed; I87.2 Venous insufficiency (chronic) (peripheral); M25.572 Pain in left ankle and joints of left foot | CPT/HCPCS: 88305; 97597 ==

== ENCOUNTER 2023-07-31 15:11 | Outpatient (CLI) | payer MEDICARE, SELFPAY ==
[2023-07-31 17:09] LABS: Basophils Absolute Auto 0.03 K/uL (0.00-0.30); Basophils Percent Auto 0.3 % (0.0-3.0); Eosinophils Absolute Auto 0.13 K/uL (0.00-0.50); Eosinophils Percent Auto 1.4 % (0.0-7.0); Hematocrit 38.3 % (33.0-51.0); Hemoglobin* 12.1 gm/dL (12.0-16.0); Immature Granulocytes Abs Auto 0.01 K/uL (0.00-0.30); Immature Granulocytes Pct Auto 0.1 %; Lymphocytes Percent Auto 6.9 % (20-44); Mean Corpuscular HGB Conc 32 gm/dL (32-36); Mean Corpuscular Hemoglobin 31 pg (26-34); Mean Corpuscular Volume 99 fL (80-100); Monocytes Percent Auto 11.8 % (0.0-11.0); Neutrophils Percent Auto 79.5 % (42.0-72.0); Platelet Count* 236 K/uL (140-440); RDW Coefficient of Variation % 17.8 % (11.5-15.5); Red Blood Count 3.86 m/uL (4.00-5.20); White Blood Count* 8.98 K/uL (4.50-11.00)
[2023-07-31 17:25] LABS: Slide Review Reflex No
[2023-07-31 17:35] LABS: Albumin* 4.5 g/dL (3.3-5.0); Chloride* 94 mmol/L (96-114); Sodium* 134 mmol/L (135-149)
[2023-07-31 17:36] LABS: Potassium* 4.2 mmol/L (3.6-5.1)
[2023-07-31 17:39] LABS: Alanine Aminotransferase* 21 U/L (4-35); Alkaline Phosphatase* 219 U/L (40-150); Anion Gap 16 mEq/L (7-15); Aspartate Amino Transferase* 54 U/L (12-35); Bilirubin Total* 1.8 mg/dL (0.1-1.5); Blood Urea Nitrogen* 49 mg/dL (7-30); Calcium* 8.9 mg/dL (8.4-10.6); Carbon Dioxide* 24 mmol/L (20-32); Creatinine* 1.5 mg/dL (0.5-1.5); Estimated Glomerular Filt Rate 34 ml/min; Glucose* 110 mg/dL (60-115); Total Protein* 8.3 g/dL (6.0-8.3)
[2023-07-31 17:42] LABS: C Reactive Protein* 2.5 mg/dL (0.5-1.0)
[2023-07-31 17:53] LABS: Erythrocyte SedimentationRate* 23 mm/hr (2-20)
[2023-07-31 18:14] LABS: Ferritin* 19.1 ng/mL (11.1-264.0)
[2023-08-03 11:51] LABS: Prealbumin 17.1 mg/dL (20.0-40.0)
== END 2023-07-31 15:12 | disposition home or self-care (01) ==
LOC: WOUND 15:11
PROVIDERS: PCP Family Medicine; Visit Provider Family Medicine
DX: I87.312 Chronic venous hypertension (idiopathic) with ulcer of left lower extremity (principal); L97.322 Non-pressure chronic ulcer of left ankle with fat layer exposed; Z13.89 Encounter for screening for other disorder; Z79.01 Long term (current) use of anticoagulants; I48.91 Unspecified atrial fibrillation
CPT/HCPCS: 11042; 36415; 80053; 82728; 84134; 84630; 85025; 85651; 86140

== ENCOUNTER 2023-08-05 10:23 | Outpatient (CLI) | payer MEDICARE, SELFPAY | END 2023-08-05 10:24 | disposition home or self-care (01) | PROVIDERS: PCP Family Medicine; Visit Provider Family Medicine | DX: L97.909 Non-pressure chronic ulcer of unspecified part of unspecified lower leg with unspecified severity (principal) | CPT/HCPCS: 84145; 87040; 87070; 87186; 87205 ==

== ENCOUNTER 2023-08-07 15:12 | Outpatient (CLI) | payer MEDICARE, SELFPAY | END 2023-08-07 15:13 | disposition home or self-care (01) | LOC: WOUND 15:12 | PROVIDERS: PCP Family Medicine; Visit Provider Surgery | DX: I87.312 Chronic venous hypertension (idiopathic) with ulcer of left lower extremity (principal); L97.322 Non-pressure chronic ulcer of left ankle with fat layer exposed | CPT/HCPCS: 11042 ==

== ENCOUNTER 2023-08-08 16:44 | Observation (INO) | payer MEDICARE, SELFPAY ==
[2023-08-08 16:12] VITALS: BP 115/69; PULSE 79; RESP 20; TEMP 36.2; O2SAT 98; BMI 23.7
[2023-08-08 17:10] VITALS: BP 123/70; PULSE 82; RESP 16; TEMP 36.3; O2SAT 97; BMI 23.6
--- NOTE | 2023-08-08 17:36 | CRLHL7_ITS ---
For Patients: As a result of the Cures Act, medical imaging exams and procedure reports are released immediately into your electronic medical record. You may view this report before your referring provider. If you have questions, please contact your health care provider. Indication: Infection. Technique: Left ankle, 3 views. Comparison: May 11, 2023. Findings/Impression: Bones: Alignment is normal. No displaced fractures or bone lesions. Joint spaces: Unremarkable. Soft tissues: Bilateral malleolar soft tissue swelling. Dictated by Renan Mcallister MD @ 08/08/2023 7:37:22 PM (Electronically Signed)
[2023-08-08] MEDS: PIPERACILLIN/TAZOBACTAM 2.25 GM in 0.9 % SODIUM CHLORIDE Mini-bag 100 ML IVPB (18:38)
[2023-08-08] MEDS: POTASSIUM CHLORIDE 10 MEQ CAPSULE ER 20 MEQ PO (18:38)
[2023-08-08] MEDS: LACTOBACILLUS ACIDOPHILUS 1 TABLET 1 TAB PO (18:39)
[2023-08-08 18:53] LABS: Basophils Absolute Auto 0.04 K/uL (0.00-0.30); Basophils Percent Auto 0.6 % (0.0-3.0); Eosinophils Absolute Auto 0.17 K/uL (0.00-0.50); Eosinophils Percent Auto 2.4 % (0.0-7.0); Hematocrit 39.1 % (33.0-51.0); Hemoglobin* 12.6 gm/dL (12.0-16.0); Immature Granulocytes Abs Auto 0.01 K/uL (0.00-0.30); Immature Granulocytes Pct Auto 0.1 %; Lymphocytes Percent Auto 8.3 % (20-44); Mean Corpuscular HGB Conc 32 gm/dL (32-36); Mean Corpuscular Hemoglobin 31 pg (26-34); Mean Corpuscular Volume 97 fL (80-100); Monocytes Percent Auto 9.3 % (0.0-11.0); Neutrophils Percent Auto 79.3 % (42.0-72.0); Platelet Count* 261 K/uL (140-440); RDW Coefficient of Variation % 17.2 % (11.5-15.5); Red Blood Count 4.03 m/uL (4.00-5.20); White Blood Count* 6.97 K/uL (4.50-11.00)
[2023-08-08 18:54] LABS: Slide Review Reflex No
[2023-08-08 19:12] LABS: Chloride* 101 mmol/L (96-114); Potassium* 4.3 mmol/L (3.6-5.1); Sodium* 137 mmol/L (135-149)
[2023-08-08 19:15] LABS: Anion Gap 12 mEq/L (7-15); Blood Urea Nitrogen* 34 mg/dL (7-30); Carbon Dioxide* 24 mmol/L (20-32); Creatinine* 1.3 mg/dL (0.5-1.5); Est. Creatinine Clearance* 27.82; Estimated Glomerular Filt Rate 41 ml/min; Glucose* 96 mg/dL (60-115)
[2023-08-08 19:16] LABS: Calcium* 9.1 mg/dL (8.4-10.6)
[2023-08-08 19:18] LABS: C Reactive Protein* 1.2 mg/dL (0.5-1.0)
[2023-08-08 19:45] VITALS: BP 107/60; PULSE 80; RESP 16; TEMP 36.3; O2SAT 100
[2023-08-08] MEDS: GABAPENTIN 100 MG CAPSULE 200 MG PO (19:52)
[2023-08-08] MEDS: ACETAMINOPHEN 325 MG TABLET 650 MG PO (19:52)
[2023-08-08] MEDS: CEFAZOLIN 1 GM in 0.9 % SODIUM CHLORIDE Mini-bag 100 ML IVPB (19:53)
--- NOTE | 2023-08-08 19:56 | PC.NURSE ---
End of Shift: Direct admission arrived to the floor @1650 per self in wheelchair. Patient is pleasant and cooperative.. alert and orientated. Comes in for L ankle wound.. Mepilex is present.. mild +1 edema in lower L calf and foot. Pedal pulse was present. Patient's wound is followed through wound care here. Mild pain reported a 3/10 denied Tylenol. SBA w/ walker. IV in L hand.. 1 dose of ABX infused... Xray completed on L foot/ankle. Call light within reach.. she was educated regarding her hospital stay. Was educated to call when she needs something. Angie GILMORE RN.
--- NOTE | 2023-08-08 20:06 | P.IMHP_ITS ---
Hospitalist- H&P: HPI History of Present Illness Date Seen: 08/08/23 Chief complaint: Direct admit Narrative: Gisele Thompson is a 82 year old female with hypertrophic cardiomyopathy, implantable defibrillator, paroxysmal atrial fibrillation, hypertension presents with a worsening nonhealing venous stasis ulcer on her left medial malleolus. This 1st developed in April of this year without any known trauma. His gradually gotten worse since that time. It appeared infected recently in clinic, 3 days ago and cultures were obtained. These cultures grew pansensitive Pseudomonas, MSSA and E coli resistant to quinolones. She had been treated with cephalexin and yesterday ciprofloxacin was ordered for her. She has not had a fever. She does have concerns about pain in that area. She has been going to the [facility]. She does not tolerate bedside debridement very well. She also does not tolerate compression to treat her venous stasis problems. Review of Systems Narrative: She reports he has generally been feeling well recently other than the pain in her ankle. [facility] Medical History (Updated 08/08/23 @ 20:30 by Maximiliano Valente MD) Venous insufficiency (chronic) (peripheral) ?I87.2 - Venous insufficiency (chronic) (peripheral) (ICD-10) Restless leg syndrome ?G25.81 - Restless legs syndrome (ICD-10) Moderate mitral regurgitation ?I34.0 - Nonrheumatic mitral (valve) insufficiency (ICD-10) Pulmonary hypertension ?I27.20 - Pulmonary hypertension, unspecified (ICD-10) Severe tricuspid valve regurgitation ?I07.1 - Rheumatic tricuspid insufficiency (ICD-10) Atrial fibrillation ?I48.91 - Unspecified atrial fibrillation (ICD-10) Dark stools ?R19.5 - Other fecal abnormalities (ICD-10) Subclinical hypothyroidism ?E03.8 - Other specified hypothyroidism (ICD-10) Spinal stenosis ?M48.00 - Spinal stenosis, site unspecified (ICD-10) Primary hypertrophic cardiomyopathy ?I42.2 - Other hypertrophic cardiomyopathy (ICD-10) Implantable cardioverter-defibrillator (ICD) in situ ?Z95.810 - Presence of automatic (implantable) cardiac defibrillator (ICD-10) Hyperlipemia ?E78.5 - Hyperlipidemia, unspecified (ICD-10) Congestive heart failure, NYHA class 3 ?I50.9 - Heart failure, unspecified (ICD-10) Surgical History (Updated 08/08/23 @ 20:15 by Maximiliano Valente MD) S/P ICD (internal cardiac defibrillator) procedure ?Z95.810 - Presence of automatic (implantable) cardiac defibrillator (ICD-10) Status post hysterectomy with oophorectomy ?Z90.710 - Acquired absence of both cervix and uterus (ICD-10) ?Z90.721 - Acquired absence of ovaries, unilateral (ICD-10) Status post cholecystectomy ?Z90.49 - Acquired absence of other specified parts of digestive tract (ICD- 10) History of atrioventricular paula ablation ?Z98.890 - Other specified postprocedural states (ICD-10) Family History (Updated 08/08/23 @ 20:16 by Maximiliano Valente MD) Sister Depression Leukemia Brother Depression Colon cancer Family/Other Hypertrophic cardiomyopathy Melanoma Stroke Mother Colon cancer Son Hypertrophic cardiomyopathy Social History (Updated 08/08/23 @ 20:17 by Maximiliano Valente MD) Narrative: She lives in [place] with her was in good health at 89. She walks with a walker when she goes outside. She drinks alcohol occasionally. She has a remote history of smoking. is healthcare power of workers compensation attorney. Secondary healthcare power of workers compensation attorney is son Alexei or daughter Nyla. Code status is full What is your current living situation?: I presently have a place to live Problems where you live: no known problems Problems where you live details: None In the past 12 months, utilities in danger of being shut off: no In past 12 months, lack of transportation kept you from medical appts, meetings, work, or getting things needed for daily living: no In the past 12 mos, have been you worried that your food would run out before you had money to buy more?: never true In the past 12 mos, the food you bought just didn't last and you didn't have money to buy more?: never true Highest level of school completed/degree received: high school graduate Smoking Status: Former smoker What tobacco products do you use: cigarettes Smoking quit date/years: >15 years ago Do you use any of these nicotine containing products: None Second hand tobacco smoke exposure: No How often do you have a drink containing alcohol: 4 or more times a week Alcohol type: wine Alcohol type details: 1 glass of wine with dinner How many standard drinks containing alcohol do you have on a typical day: 1 or 2 How often do you have six or more drinks on one occasion: Daily or almost daily AUDIT-C Alcohol total score: 8 Non-prescribed substance use: denies use Caffeine: Yes How often does anyone, including family, friends and others, physically hurt you : never How often does anyone, including family, friends and others, insult or talk down to you: never How often does anyone, including family, friends and others, threaten you with harm: never How often does anyone, including family, friends and others, scream or curse at you: never service: No Meds Home Medications and Allergies Home Medications Medication Instructions Recorded Confirmed Type simvastatin 20 mg tablet 20 mg PO HS 07/23/22 08/08/23 History spironolactone 25 mg tablet 12.5 mg PO DAILY 07/23/22 08/08/23 History torsemide 20 mg tablet 40 mg PO DAILY 11/26/22 08/08/23 History apixaban 2.5 mg tablet (Eliquis) 2.5 mg PO BID 12/27/22 08/08/23 History pantoprazole 40 mg tablet,delayed 40 mg PO QDAY 12/27/22 08/05/23 History release potassium chloride 20 mEq 20 meq PO BID 05/12/23 08/08/23 History tablet,extended release pramipexole 0.5 mg tablet 0.5 - 1 mg PO QHS restless leg(s) 05/30/23 08/08/23 History midodrine 10 mg tablet 10 mg PO TID 08/08/23 08/08/23 History Allergies Allergy/AdvReac Type Severity Reaction Status Date / Time Sulfa (Sulfonamide Allergy Severe feet Verified 08/05/23 09:48 Antibiotics) swelling and rash Iodinated Contrast Media AdvReac Severe WIN Verified 08/05/23 09:48 ropinirole AdvReac Intermediate Nausea Verified 08/05/23 09:48 Exam Narrative: Exam Narrative: She is alert and appears in no distress. She gives her own history. Eyes normal. Oropharynx normal. Neck is supple without mass or adenopathy. She has moderate jugular venous distension. Right jugular vein is distended to the angle of the mandible semi recumbent at 30?. Respirations are clear to auscultation. Cardiovascular: S1, S2, 2/6 systolic murmur. Abdomen is soft without tenderness or mass. Lower extremities with no significant edema on the right 2+ edema on the left. She has a Mepilex bandage over a ulcer which is 3 cm in diameter over her left medial malleolus. The ulcer is shallow with fibrin is exudate at the base. Surrounding erythema extending up approximately 1/3 of the left leg. Bilaterally she has intact dorsalis pedis pulses and adequate capillary refill. Const: Vital Signs, click to edit/add: Vital Signs - 24 hr 08/08/23 16:12 08/08/23 17:10 08/08/23 17:10 Temperature 97.2 F L 97.3 F L Pulse Rate [Pulse Oximeter] 79 Pulse Rate [Right Pulse Oximeter] 82 Respiratory Rate 20 16 Blood Pressure [Le ft Arm] 123/70 Blood Pressure [Ri ght Upper Arm] 115/69 Pulse Oximetry 98 97 Oxygen Delivery Me thod Room Air Room Air Room Air Documenting provider has reviewed patient's vital signs: yes Hospitalist - H&P: Result Labs Labs: Short CBC 08/08/23 Range/Units 18:47 WBC 6.97 (4.50-11.00) K/uL Hgb 12.6 (12.0-16.0) gm/dL Hct 39.1 (33.0-51.0) % Plt Count 261 (140-440) K/uL BMP 08/08/23 18:47 Sodium 137 Potassium 4.3 Chloride 101 Carbon Dioxide 24 BUN 34 H Creatinine 1.3 Glucose 96 Calcium 9.1 Assessment and Plan Assessment and plan (1) Leg ulcer: Problem comment: Chronic venous stasis ulcer getting worse. Status: Acute (2) Cellulitis: Problem comment: Surrounding leg cellulitis. Wound cultures from 3 days ago growing MSSA, pansensitive Pseudomonas, E coli resistant to quinolones. Will treat with Zosyn and Ancef initially. Outpatient treatment could be Cipro and Keflex Status: Acute (3) Venous insufficiency (chronic) (peripheral): Problem comment: Needs compression wraps. Status: Acute Plan Patient be admitted the hospital to initiate IV antibiotics. Surgery consulted. Work on improved outpatient plan. Total time spent today is 70 minutes, 50 minutes in coordination of care and discussion with patient and other providers management of venous stasis ulcer.
[2023-08-08] MEDS: PRAMIPEXOLE 0.5 MG TABLET PO (20:15)
[2023-08-08] MEDS: APIXABAN 5 MG TABLET 2.5 MG PO (20:15)
[2023-08-08] MEDS: SIMVASTATIN 20 MG TABLET PO (20:16)
[2023-08-08] MEDS: OMEPRAZOLE 20 MG CAPSULE DR 40 MG PO (22:10)
[2023-08-08 22:19] VITALS: PULSE 86; RESP 16
[2023-08-08 22:25] VITALS: BP 105/64; PULSE 86; RESP 16; TEMP 36.3; O2SAT 95
[2023-08-09] MEDS: PIPERACILLIN/TAZOBACTAM 2.25 GM in 0.9 % SODIUM CHLORIDE Mini-bag 100 ML IVPB ×3 (00:38→12:23)
[2023-08-09] MEDS: ACETAMINOPHEN 325 MG TABLET 650 MG PO ×2 (00:43→10:43)
[2023-08-09] MEDS: CEFAZOLIN 1 GM in 0.9 % SODIUM CHLORIDE Mini-bag 100 ML IVPB ×2 (02:54→10:45)
[2023-08-09] MEDS: OXYCODONE 5 MG TABLET PO (02:54)
[2023-08-09 03:05] VITALS: BP 107/65; PULSE 79; RESP 16; TEMP 36.3; O2SAT 93
--- NOTE | 2023-08-09 05:45 | PC.NURSE ---
Pt alert and oriented x3. Afebrile. Pt reports 7/10 pain in left foot, managed with PRN medications. Pt denies chest pain, SOB, and N/V. Pt's left foot dressing was changed 08/08/23 around 1999, pt tolerated well with minimal discomfort, dressing is CDI. Pt has pink area one left foot around foot ulcer which was outlined, pink/reddened area did not exceed outline overnight. Pt is up SBA with walker and gait belt, tolerating regular diet, voiding and KAITLYN wraps are on. Pt slept throughout most of night.
[2023-08-09 07:00] VITALS: BP 95/58; PULSE 80; RESP 18; TEMP 36.5; O2SAT 96
[2023-08-09] MEDS: TORSEMIDE 20 MG TABLET 40 MG PO (09:20)
[2023-08-09] MEDS: POTASSIUM CHLORIDE 10 MEQ CAPSULE ER 20 MEQ PO (09:20)
[2023-08-09] MEDS: LACTOBACILLUS ACIDOPHILUS 1 TABLET 1 TAB PO (09:20)
[2023-08-09] MEDS: OMEPRAZOLE 20 MG CAPSULE DR 40 MG PO (09:21)
[2023-08-09] MEDS: SPIRONOLACTONE 25 MG TABLET 12.5 MG PO (09:21)
[2023-08-09] MEDS: APIXABAN 5 MG TABLET 2.5 MG PO (09:21)
[2023-08-09] MEDS: MIDODRINE HCL 5 MG TABLET 10 MG PO (09:22)
--- NOTE | 2023-08-09 10:37 | PC.SOCIAL ---
Addendum entered by KISHAN Alcantara 08/09/23 15:33: Pt was discharged to home today. Faxed discharge summary and medication list to [facility] at [phone]. Phone call to Kailee at [facility] at [phone] to provide update on discharge. Confirmed that fax was received and [facility] will resume home care visits starting Saturday08/12/23. Original Note: Received a phone call from Kailee at [facility] at [phone]. [facility] is providing home care (wound care) for pt. [facility] will not need a resumption of care order if pt remains in observation status. If pt becomes inpatient then they will need a new resumption of care order. [facility] would like pt's discharge summary faxed to them at [phone]. Provided information to charge nurse and MD. Social work will follow up as needed.
[2023-08-09] MEDS: SODIUM CHLORIDE 0.9 % (FLUSH) 10 ML SYRINGE 5 ML IVF (10:45)
[2023-08-09 11:00] VITALS: BP 116/79; PULSE 80; RESP 16; TEMP 36.5; O2SAT 98
[2023-08-09] MEDS: ACETIC ACID 1,000 ML IRR 0.25% 1 APPLIC IRRIGATION (12:23)
--- NOTE | 2023-08-09 12:30 | P.DS_ITS ---
DS: Providers Provider Date Seen: 08/09/23 Date of admission: 08/08/23 16:44 Primary care physician: Gaby Duran MD Admitting Clinician: Maximiliano Valente MD Consults: 08/08/23 17:27 Consult to Physician [CONS] Urgent Comment: Consulting Provider: Angelina Gardner Has provider been notified: Yes Attending Physician on discharge: RUBIO Ignacio, PA-C [place] Hospitalist Date of Discharge: 08/09/23 DS: Diagnosis Discharge Diagnosis (1) Cellulitis: Status: Acute Problem details: Surrounding leg cellulitis, noted to be improving, receding from skin pen markings on day of discharge. Wound cultures from 3 days ago growing MSSA, pansensitive Pseudomonas, E coli resistant to quinolones. Will treat with Zosyn and Ancef initially. Discharged to continue outpatient antibiotic with Cipro and Keflex, 7 day course, with total length of course to be determined by wound care team. Could consider outpatient MRI of extremity. (2) Leg ulcer: Status: Acute Problem details: Chronic venous stasis ulcer getting worse. Recurrent ulcers. Followed by Dr. Dumont and wound care team. Has been referred to Vascular Medicine. Discussed continuing wound cares. Good hand hygiene. Encouraged wearing compression wraps as recommended. New dressing applied 08/09/23. Pain management with Tylenol prn, occasional Tramadol prn, rest and elevation (admits to increased discomfort when more active). DS: Summary Hospital Course Hospital Course: [age] year old female past medical history significant for venous insuf ficiency, recurrent ulcerations, pulmonary hypertension was admitted to the medical floor for further management acute cellulitis in setting of chronic lower extremity ulcerations. Course of care and details as noted above. Status at Discharge Overall status at discharge: patient is progressing back to baseline Time Spent with Patient Time attestation: Total time spent providing and/or coordinating discharge services: Time spent: Greater than 30 minutes Exam Narrative: Exam Narrative: PHYSICAL EXAM General: Pleasant, conversant, NAD HEENT: Normocephalic, atraumatic, sclera white, EOMI, oral mucosa moist Cardiovascular: RRR, S1S2. No pitting edema Pulmonary: CTA bilaterally without rhonchi, rales, expiratory wheezes. No dys pnea Neurological: Alert, answering questions appropriately, cranial nerves intact, no focal findings Extremities: Bilateral lower extremities with evidence of venous insufficiency, left lower extremity ulceration pink with epithelial slough, mild surrounding rubor no streaking no swelling. Skin: Warm, dry. As above Const: Vital Signs, click to edit/add: Vital Signs - 24 hr 08/08/23 16:12 08/08/23 17:10 08/08/23 17:10 Temperature 97.2 F L 97.3 F L Pulse Rate [Pulse Oximeter] 79 Pulse Rate [Right Pulse Oximeter] 82 Respiratory Rate 20 16 Blood Pressure [Le ft Arm] 123/70 Blood Pressure [Ri ght Upper Arm] 115/69 Pulse Oximetry 98 97 Oxygen Delivery Me thod Room Air Room Air Room Air 08/08/23 19:45 08/08/23 22:19 08/08/23 22:25 Temperature 97.4 F L 97.4 F L Pulse Rate [Pulse Oximeter] Pulse Rate [Right Pulse Oximeter] 80 86 86 Respiratory Rate 16 16 16 Blood Pressure [Le ft Arm] 107/60 105/64 Blood Pressure [Ri ght Upper Arm] Pulse Oximetry 100 95 Oxygen Delivery Me thod Room Air Room Air 08/09/23 03:05 08/09/23 07:00 Temperature 97.4 F L 97.7 F Pulse Rate [Pulse Oximeter] Pulse Rate [Right Pulse Oximeter] 79 80 Respiratory Rate 16 18 Blood Pressure [Le ft Arm] 107/65 95/58 L Blood Pressure [Ri ght Upper Arm] Pulse Oximetry 93 96 Oxygen Delivery Me thod Room Air Room Air DS: Data Data Completed and Pending Labs on day of discharge: Labs from last 24 hours 08/08/23 18:47 WBC 6.97 RBC 4.03 Hgb 12.6 Hct 39.1 MCV 97 MCH 31 MCHC 32 RDW Coeff of Ran 17.2 H Plt Count 261 Neut % (Auto) 79.3 H Lymph % (Auto) 8.3 L [place] % (Auto) 9.3 Eos % (Auto) 2.4 Baso % (Auto) 0.6 Neut # (Auto) 5.50 Lymph # (Auto) 0.60 L [place] # (Auto) 0.60 Eos # (Auto) 0.17 Baso # (Auto) 0.04 Abs Immat Gran (auto) 0.01 Imm/Tot Granulo (auto) 0.1 Sodium 137 Potassium 4.3 Chloride 101 Carbon Dioxide 24 Anion Gap 12 BUN 34 H Creatinine 1.3 Estimated Creat Clear 27.82 Estimated GFR 41 Glucose 96 Calcium 9.1 C-Reactive Protein 1.2 H Discharge Plan Discharge Disposition: Home, Self-Care Date of Admission: 08/08/23 16:44 Attending Provider on Discharge: Linh Smith Consulting Providers: Angelina Gardner Primary Care Provider: Gaby Duran Condition: Improved Anticipated Discharge Date/Time: 08/09/23 11:01 Discharge Medications: New cephalexin 500 mg capsule 500 mg PO QID Qty: 28 0RF ciprofloxacin HCl 500 mg tablet 500 mg PO BID Qty: 14 0RF Continued spironolactone 25 mg tablet 12.5 mg PO DAILY simvastatin 20 mg tablet 20 mg PO HS torsemide 20 mg tablet 40 mg PO DAILY Eliquis 2.5 mg tablet 2.5 mg PO BID pantoprazole 40 mg tablet,delayed release (DR/EC) 40 mg PO QDAY pramipexole 0.5 mg tablet 0.5 - 1 mg PO QHS potassium chloride 20 mEq tablet extended release 20 meq PO BID Lactobacillus acidophilus 0.5 mg (100 million cell) Tablet 1,000 mmu cells PO TIDWM 30 Days Qty: 100 0RF tramadol 50 mg tablet 50 mg PO Q8H PRN (Reason: pain) Qty: 7 0RF acetic acid 0.25 % solution 1 irrig irrigation .EOD Qty: 1000 1RF Rx Instructions: Use every other day during dressing changes. Soak wound with ascetic acid soaked gauze for 5-10 minutes. gabapentin 100 mg capsule 100 - 200 mg PO QPM PRN (Reason: for neuropathy) Qty: 120 5RF midodrine 10 mg tablet 10 mg PO TID Discharge Orders: Discharge Order (Routine); Ordered 08/09/23 Ordered By: Linh Smith Patient Education: Cephalexin (By mouth), Ciprofloxacin (By mouth), Cellulitis (GEN), Chronic Wounds (GEN) Additional Instructions: Continue outpatient wound cares as scheduled (M,W,F) with your next clinic visit on 08/14/23. A new dressing was placed prior to discharge on 08/09/23. Based on the cultures from your wound, you will take a 7 day course of Ciprofloxacin and Keflex, final length of treatment to be determined by your wound care team. Continue to take Tylenol as needed for pain and an occasional Tramadol if needed. Recommend limiting activity and elevating your legs to alleviate your pain when you are more active. Activity Level: Activity as Tolerated Discharge Diet: Regular Follow Up Appointments: Gaby Duran MD [Primary Care Provider] - 08/15/23 11:30 am ([facility] for post hospital follow up. Continue wound cares. ) Forms: [employer] Info Instructions
[2023-08-09 13:26] VITALS: BMI 24.8
--- NOTE | 2023-08-09 17:51 | PC.NURSE ---
Discharge - Pt alert, oriented and pleasant during shift. Up with walker to bathroom with standby assistance. Continent of bowel and bladder. Pt reported pain of 1/10 in L foot, managed with medication in MAR and adding pillow for comfort. Pt tolerated dressing change well, denied increased pain. Wound cleansed per instructions in [facility], dressed with hydrafera blue and mepilex. Dressing clean, dry, intact upon discharge. Pt tolerated regular diet and RA. VSS, afebrile during shift. Family at bedside. Discharge instructions reviewed and signed, pt and family verbalized understanding. Discharged to home with family member at approximately 1400.
== END 2023-08-09 14:00 | disposition home or self-care (01) ==
PROVIDERS: Admitting Provider Family Medicine; PCP Family Medicine; Visit Provider Family Medicine
DX: L97.922 Non-pressure chronic ulcer of unspecified part of left lower leg with fat layer exposed (principal); L03.90 Cellulitis, unspecified; I87.2 Venous insufficiency (chronic) (peripheral); I42.2 Other hypertrophic cardiomyopathy; E78.5 Hyperlipidemia, unspecified; I48.0 Paroxysmal atrial fibrillation; I10 Essential (primary) hypertension; E03.8 Other specified hypothyroidism; A49.8 Other bacterial infections of unspecified site; Z79.01 Long term (current) use of anticoagulants; Z87.891 Personal history of nicotine dependence; Z90.710 Acquired absence of both cervix and uterus; Z90.721 Acquired absence of ovaries, unilateral; Z90.49 Acquired absence of other specified parts of digestive tract; Z95.810 Presence of automatic (implantable) cardiac defibrillator; Z98.890 Other specified postprocedural states
CPT/HCPCS: 36415; 73610; 80048; 85025; 86140; 96365; 96366; 96367; 96375; A9270; G0378; J0690; J2543

== ENCOUNTER 2023-08-14 15:16 | Outpatient (CLI) | payer MEDICARE, SELFPAY | END 2023-08-14 15:17 | disposition home or self-care (01) | LOC: WOUND 15:16 | PROVIDERS: PCP Family Medicine; Visit Provider Surgery | DX: I87.312 Chronic venous hypertension (idiopathic) with ulcer of left lower extremity (principal); L97.322 Non-pressure chronic ulcer of left ankle with fat layer exposed | CPT/HCPCS: 11042 ==

== ENCOUNTER 2023-08-28 15:13 | Outpatient (CLI) | payer MEDICARE, SELFPAY | END 2023-08-28 15:14 | disposition home or self-care (01) | LOC: WOUND 15:13 | PROVIDERS: PCP Family Medicine; Visit Provider Surgery | DX: I87.312 Chronic venous hypertension (idiopathic) with ulcer of left lower extremity (principal); L97.322 Non-pressure chronic ulcer of left ankle with fat layer exposed; Z79.01 Long term (current) use of anticoagulants | CPT/HCPCS: 97597 ==

== ENCOUNTER 2023-09-04 15:18 | Outpatient (CLI) | payer MEDICARE, SELFPAY | END 2023-09-04 15:19 | disposition home or self-care (01) | LOC: WOUND 15:18 | PROVIDERS: PCP Family Medicine; Visit Provider Surgery | DX: I87.312 Chronic venous hypertension (idiopathic) with ulcer of left lower extremity (principal); L97.322 Non-pressure chronic ulcer of left ankle with fat layer exposed; Z79.01 Long term (current) use of anticoagulants | CPT/HCPCS: 97597 ==

== ENCOUNTER 2023-09-11 15:16 | Outpatient (CLI) | payer MEDICARE, SELFPAY | END 2023-09-11 15:17 | disposition home or self-care (01) | LOC: WOUND 15:16 | PROVIDERS: PCP Family Medicine; Visit Provider Surgery | DX: I87.312 Chronic venous hypertension (idiopathic) with ulcer of left lower extremity (principal); L97.322 Non-pressure chronic ulcer of left ankle with fat layer exposed; Z79.01 Long term (current) use of anticoagulants | CPT/HCPCS: 97597 ==

== ENCOUNTER 2023-09-18 15:21 | Outpatient (CLI) | payer MEDICARE, SELFPAY | END 2023-09-18 15:22 | disposition home or self-care (01) | LOC: WOUND 15:21 | PROVIDERS: PCP Family Medicine; Visit Provider Surgery | DX: I87.312 Chronic venous hypertension (idiopathic) with ulcer of left lower extremity (principal); L97.322 Non-pressure chronic ulcer of left ankle with fat layer exposed | CPT/HCPCS: 15271; Q4101 ==

== ENCOUNTER 2023-09-25 15:07 | Outpatient (CLI) | payer MEDICARE, SELFPAY | END 2023-09-25 15:08 | disposition home or self-care (01) | LOC: WOUND 15:07 | PROVIDERS: PCP Family Medicine; Visit Provider Surgery | DX: I87.312 Chronic venous hypertension (idiopathic) with ulcer of left lower extremity (principal); L97.322 Non-pressure chronic ulcer of left ankle with fat layer exposed; L08.9 Local infection of the skin and subcutaneous tissue, unspecified; B96.20 Unspecified Escherichia coli [E. coli] as the cause of diseases classified elsewhere | CPT/HCPCS: 87070; 87186; 97597 ==

== ENCOUNTER 2023-10-02 15:12 | Outpatient (CLI) | payer MEDICARE, SELFPAY | END 2023-10-02 15:13 | disposition home or self-care (01) | LOC: WOUND 15:12 | PROVIDERS: PCP Family Medicine; Visit Provider Surgery | DX: I87.312 Chronic venous hypertension (idiopathic) with ulcer of left lower extremity (principal); L97.322 Non-pressure chronic ulcer of left ankle with fat layer exposed; Z79.01 Long term (current) use of anticoagulants | CPT/HCPCS: 97597 ==

== ENCOUNTER 2023-10-09 15:16 | Outpatient (CLI) | payer MEDICARE, SELFPAY | END 2023-10-09 15:17 | disposition home or self-care (01) | LOC: WOUND 15:16 | PROVIDERS: PCP Family Medicine; Visit Provider Surgery | DX: I87.312 Chronic venous hypertension (idiopathic) with ulcer of left lower extremity (principal); L97.322 Non-pressure chronic ulcer of left ankle with fat layer exposed; Z79.01 Long term (current) use of anticoagulants | CPT/HCPCS: 97597 ==

== ENCOUNTER 2023-10-16 15:07 | Outpatient (CLI) | payer MEDICARE, SELFPAY | END 2023-10-16 15:08 | disposition home or self-care (01) | LOC: WOUND 15:07 | PROVIDERS: PCP Family Medicine; Visit Provider Surgery | DX: I87.312 Chronic venous hypertension (idiopathic) with ulcer of left lower extremity (principal); L97.322 Non-pressure chronic ulcer of left ankle with fat layer exposed | CPT/HCPCS: 29581 ==

== ENCOUNTER 2023-10-30 15:11 | Outpatient (CLI) | payer MEDICARE, SELFPAY | END 2023-10-30 15:12 | disposition home or self-care (01) | LOC: WOUND 15:11 | PROVIDERS: PCP Family Medicine; Visit Provider Surgery | DX: I87.312 Chronic venous hypertension (idiopathic) with ulcer of left lower extremity (principal); L97.322 Non-pressure chronic ulcer of left ankle with fat layer exposed | CPT/HCPCS: 97597 ==

== ENCOUNTER 2023-11-06 15:10 | Outpatient (CLI) | payer MEDICARE, SELFPAY | END 2023-11-06 15:11 | disposition home or self-care (01) | LOC: WOUND 15:10 | PROVIDERS: PCP Family Medicine; Visit Provider Surgery | DX: I87.312 Chronic venous hypertension (idiopathic) with ulcer of left lower extremity (principal); L97.322 Non-pressure chronic ulcer of left ankle with fat layer exposed; Z79.01 Long term (current) use of anticoagulants | CPT/HCPCS: 11042 ==

== ENCOUNTER 2023-11-13 15:24 | Outpatient (CLI) | payer MEDICARE, SELFPAY | END 2023-11-13 15:25 | disposition home or self-care (01) | LOC: WOUND 15:24 | PROVIDERS: PCP Family Medicine; Visit Provider Surgery | DX: I87.312 Chronic venous hypertension (idiopathic) with ulcer of left lower extremity (principal); L97.322 Non-pressure chronic ulcer of left ankle with fat layer exposed; Z79.01 Long term (current) use of anticoagulants | CPT/HCPCS: 11042 ==

== ENCOUNTER 2023-11-20 15:17 | Outpatient (CLI) | payer MEDICARE, SELFPAY | END 2023-11-20 15:18 | disposition home or self-care (01) | LOC: WOUND 15:17 | PROVIDERS: PCP Family Medicine; Visit Provider Physician Assistant | DX: I87.312 Chronic venous hypertension (idiopathic) with ulcer of left lower extremity (principal); L97.322 Non-pressure chronic ulcer of left ankle with fat layer exposed | CPT/HCPCS: 97597 ==

== ENCOUNTER 2023-11-27 15:11 | Outpatient (CLI) | payer MEDICARE, SELFPAY | END 2023-11-27 15:12 | disposition home or self-care (01) | LOC: WOUND 15:11 | PROVIDERS: PCP Family Medicine; Visit Provider Surgery | DX: I87.312 Chronic venous hypertension (idiopathic) with ulcer of left lower extremity (principal); L97.322 Non-pressure chronic ulcer of left ankle with fat layer exposed | CPT/HCPCS: 97597; G0463 ==

== ENCOUNTER 2023-12-04 15:17 | Outpatient (CLI) | payer MEDICARE, SELFPAY | END 2023-12-04 15:18 | disposition home or self-care (01) | LOC: WOUND 15:17 | PROVIDERS: PCP Family Medicine; Visit Provider Surgery | DX: I87.312 Chronic venous hypertension (idiopathic) with ulcer of left lower extremity (principal); L97.322 Non-pressure chronic ulcer of left ankle with fat layer exposed; Z79.01 Long term (current) use of anticoagulants | CPT/HCPCS: 97597 ==

== ENCOUNTER 2023-12-11 15:16 | Outpatient (CLI) | payer MEDICARE, SELFPAY | END 2023-12-11 15:17 | disposition home or self-care (01) | LOC: WOUND 15:16 | PROVIDERS: PCP Family Medicine; Visit Provider Family Medicine | DX: I87.312 Chronic venous hypertension (idiopathic) with ulcer of left lower extremity (principal); L97.322 Non-pressure chronic ulcer of left ankle with fat layer exposed | CPT/HCPCS: 11042 ==

== ENCOUNTER 2023-12-18 15:28 | Outpatient (CLI) | payer MEDICARE, SELFPAY | END 2023-12-18 15:29 | disposition home or self-care (01) | LOC: WOUND 15:29 | PROVIDERS: PCP Family Medicine; Visit Provider Surgery | DX: I87.312 Chronic venous hypertension (idiopathic) with ulcer of left lower extremity (principal); L97.322 Non-pressure chronic ulcer of left ankle with fat layer exposed; Z79.01 Long term (current) use of anticoagulants | CPT/HCPCS: 97597; G0463 ==

== ENCOUNTER 2023-12-25 15:30 | Outpatient (CLI) | payer MEDICARE, SELFPAY | END 2023-12-25 15:31 | disposition home or self-care (01) | LOC: WOUND 12-30 10:37 | PROVIDERS: PCP Family Medicine; Visit Provider Surgery | DX: I87.312 Chronic venous hypertension (idiopathic) with ulcer of left lower extremity (principal); L97.322 Non-pressure chronic ulcer of left ankle with fat layer exposed | CPT/HCPCS: 17250 ==

== ENCOUNTER 2024-01-01 15:27 | Outpatient (CLI) | payer MEDICARE, SELFPAY | END 2024-01-01 15:28 | disposition home or self-care (01) | LOC: WOUND 15:27 | PROVIDERS: PCP Family Medicine; Visit Provider Surgery | DX: I87.312 Chronic venous hypertension (idiopathic) with ulcer of left lower extremity (principal); L97.322 Non-pressure chronic ulcer of left ankle with fat layer exposed; Z79.01 Long term (current) use of anticoagulants | CPT/HCPCS: G0463 ==

== ENCOUNTER 2024-01-08 15:13 | Outpatient (CLI) | payer MEDICARE, SELFPAY | END 2024-01-08 15:14 | disposition home or self-care (01) | LOC: WOUND 15:13 | PROVIDERS: PCP Family Medicine; Visit Provider Physician Assistant | DX: I87.312 Chronic venous hypertension (idiopathic) with ulcer of left lower extremity (principal); L97.321 Non-pressure chronic ulcer of left ankle limited to breakdown of skin; Z79.01 Long term (current) use of anticoagulants | CPT/HCPCS: 97597 ==

== ENCOUNTER 2024-01-15 15:19 | Outpatient (CLI) | payer MEDICARE, SELFPAY | END 2024-01-15 15:20 | disposition home or self-care (01) | LOC: WOUND 15:19 | PROVIDERS: PCP Family Medicine; Visit Provider Surgery | DX: I87.312 Chronic venous hypertension (idiopathic) with ulcer of left lower extremity (principal); L97.322 Non-pressure chronic ulcer of left ankle with fat layer exposed; Z79.01 Long term (current) use of anticoagulants | CPT/HCPCS: G0463 ==

== ENCOUNTER 2024-01-22 15:31 | Outpatient (CLI) | payer MEDICARE, SELFPAY | END 2024-01-22 15:32 | disposition home or self-care (01) | PROVIDERS: PCP Family Medicine; Visit Provider Surgery | DX: I87.312 Chronic venous hypertension (idiopathic) with ulcer of left lower extremity (principal); L97.322 Non-pressure chronic ulcer of left ankle with fat layer exposed; Z79.01 Long term (current) use of anticoagulants | CPT/HCPCS: G0463 ==

== ENCOUNTER 2024-01-29 15:25 | Outpatient (CLI) | payer MEDICARE, SELFPAY | END 2024-01-29 15:26 | disposition home or self-care (01) | LOC: WOUND 15:25 | PROVIDERS: PCP Family Medicine; Visit Provider Surgery | DX: I87.312 Chronic venous hypertension (idiopathic) with ulcer of left lower extremity (principal); L97.322 Non-pressure chronic ulcer of left ankle with fat layer exposed; Z79.01 Long term (current) use of anticoagulants | CPT/HCPCS: G0463 ==

== ENCOUNTER 2024-02-05 15:17 | Outpatient (CLI) | payer MEDICARE, SELFPAY | END 2024-02-05 15:18 | disposition home or self-care (01) | LOC: WOUND 15:17 | PROVIDERS: PCP Family Medicine; Visit Provider Surgery | DX: I87.312 Chronic venous hypertension (idiopathic) with ulcer of left lower extremity (principal); L97.322 Non-pressure chronic ulcer of left ankle with fat layer exposed; Z79.01 Long term (current) use of anticoagulants | CPT/HCPCS: G0463 ==

== ENCOUNTER 2024-02-12 15:15 | Outpatient (CLI) | payer MEDICARE, SELFPAY | END 2024-02-12 15:16 | disposition home or self-care (01) | LOC: WOUND 15:15 | PROVIDERS: PCP Family Medicine; Visit Provider Surgery | DX: I87.312 Chronic venous hypertension (idiopathic) with ulcer of left lower extremity (principal); L97.328 Non-pressure chronic ulcer of left ankle with other specified severity; Z79.01 Long term (current) use of anticoagulants | CPT/HCPCS: G0463 ==

== ENCOUNTER 2024-03-31 09:14 | Outpatient (CLI) | payer MEDICARE, SELFPAY | END 2024-03-31 09:15 | disposition home or self-care (01) | PROVIDERS: PCP Family Medicine; Visit Provider Family Medicine | DX: E03.8 Other specified hypothyroidism (principal); I27.20 Pulmonary hypertension, unspecified | CPT/HCPCS: 80053; 82043; 82570; 84443 ==

== ENCOUNTER 2024-05-19 11:21 | Emergency (ER) | payer MEDICARE, SELFPAY ==
[2024-05-19 11:27] VITALS: BP 134/78; PULSE 81; RESP 18; TEMP 37.1; O2SAT 94; BMI 24.9
--- NOTE | 2024-05-19 11:57 | CRLHL7_ITS ---
For Patients: As a result of the Century Cures Act, medical imaging exams and procedure reports are released immediately into your electronic medical record. You may view this report before your referring provider. If you have questions, please contact your health care provider. INDICATION: Right leg swelling. TECHNIQUE: Ultrasound venous duplex lower right extremity. Compression venous exam was performed using arzate-scale, color Doppler, and spectral Doppler imaging. COMPARISON: None. FINDINGS: Right lower extremity: Common femoral vein: Patent and compressible. Greater saphenous vein: Patent. Deep femoral vein: Patent. Femoral vein: Patent and compressible. Popliteal vein: Patent and compressible. Posterior tibial vein: Patent and compressible. Peroneal vein: Patent and compressible. Contralateral left common femoral vein: Patent and compressible. Other: Extensive subcutaneous edema within the right calf. IMPRESSION: 1. No evidence of acute deep venous thrombosis in the right lower extremity. 2. Extensive subcutaneous edema within the right calf. Dictated by Grover Baca MD @ 05/19/2024 1:03:13 PM (Electronically Signed)
--- NOTE | 2024-05-19 12:25 | ED_ITS ---
HPI - General Adult General Date Seen: 05/19/24 Chief complaint: Extremity Pain/Injury, Lower Stated complaint: Swollen right leg x1 day Time Seen by Provider: 05/19/24 11:41 Source: patient Mode of arrival: ambulatory Limitations: no limitations History of Present Illness HPI narrative: Patient is an 83-year-old female presenting for right leg swelling. She has a history of leg swelling in the past and used to be a bilateral he but her daughter does note she had a venous procedure done in her left leg a few months ago. The she has not noticed any inflammation to the right leg and is not having any pain right now. She 1st noticed the swelling last night. No other concerns at this time. Denies chest pain, shortness of breath. And is on Eliquis for AFib. In 2nd the peak on numbness or weakness to the right leg. No other concerns noted. Related Data Home Medications ?Medication ?Instructions ?Recorded ?Confirmed spironolactone 25 mg tablet 12.5 mg PO DAILY 07/23/22 03/31/24 torsemide 20 mg tablet 40 mg PO DAILY 11/26/22 03/31/24 ascorbic acid (vitamin C) 500 mg mg PO DAILY PRN 03/31/24 03/31/24 capsule metoprolol succinate 25 mg 12.5 mg PO DAILY 03/31/24 03/31/24 tablet,extended release 24 hr Previous Rx's ?Medication ?Instructions ?Recorded midodrine 10 mg tablet 10 mg PO TID #90 tabs 10/24/23 apixaban 2.5 mg tablet (Eliquis) 2.5 mg PO BID #180 tabs 03/31/24 potassium chloride 20 mEq 20 meq PO BID #180 tabs 03/31/24 tablet,extended release pramipexole 1 mg tablet 1 mg PO QHS #90 tabs 03/31/24 simvastatin 20 mg tablet 20 mg PO HS #90 tabs 03/31/24 Allergies Allergy/AdvReac Type Severity Reaction Status Date / Time Sulfa (Sulfonamide Allergy Severe feet Verified 03/31/24 09:10 Antibiotics) swelling and rash Iodinated Contrast Media AdvReac Severe WIN Verified 03/31/24 09:10 ropinirole AdvReac Intermediate Nausea Verified 03/31/24 09:10 Review of Systems Narrative: Pertinent systems reviewed and were negative unless stated in HPI PFSH PFS Medical History (Updated 05/19/24 @ 13:28 by Jordi Grace DO) Acute hyponatremia ?E87.1 - Hypo-osmolality and hyponatremia (ICD-10) Acute kidney injury ?N17.9 - Acute kidney failure, unspecified (ICD-10) Leg ulcer ?L97.909 - Non-pressure chronic ulcer of unspecified part of unspecified lower leg with unspecified severity (ICD-10) Congestive heart failure, NYHA class 3 ?I50.9 - Heart failure, unspecified (ICD-10) Pseudomonas infection ?A49.8 - Other bacterial infections of unspecified site (ICD-10) Septic shock ?A41.9 - Sepsis, unspecified organism (ICD-10) ?R65.21 - Severe sepsis with septic shock (ICD-10) Cellulitis ?L03.90 - Cellulitis, unspecified (ICD-10) Hyperlipemia ?E78.5 - Hyperlipidemia, unspecified (ICD-10) Surgical History (Updated 11/27/23 @ 15:51 by Nadia Prather) History of bilateral cataract extraction ?Z98.41 - Cataract extraction status, right eye (ICD-10) ?Z98.42 - Cataract extraction status, left eye (ICD-10) S/P ICD (internal cardiac defibrillator) procedure ?Z95.810 - Presence of automatic (implantable) cardiac defibrillator (ICD-10) Status post hysterectomy with oophorectomy ?Z90.710 - Acquired absence of both cervix and uterus (ICD-10) ?Z90.721 - Acquired absence of ovaries, unilateral (ICD-10) Status post cholecystectomy ?Z90.49 - Acquired absence of other specified parts of digestive tract (ICD- 10) History of atrioventricular paula ablation ?Z98.890 - Other specified postprocedural states (ICD-10) Family History (Updated 08/08/23 @ 20:16 by Maximiliano Valente MD) Sister Depression Leukemia Brother Depression Colon cancer Family/Other Hypertrophic cardiomyopathy Melanoma Stroke Mother Colon cancer Son Hypertrophic cardiomyopathy Social History (Updated 08/08/23 @ 20:17 by Maximiliano Valente MD) Narrative: She lives in [place] with her was in good health at 89. She walks with a walker when she goes outside. She drinks alcohol occasionally. She has a remote history of smoking. is healthcare power of workers compensation attorney. Secondary healthcare power of workers compensation attorney is son Alexei or daughter Nyla. Code status is full What is your current living situation?: I presently have a place to live Problems where you live: no known problems Problems where you live details: None In the past 12 months, utilities in danger of being shut off: no In past 12 months, lack of transportation kept you from medical appts, meetings, work, or getting things needed for daily living: no In the past 12 mos, have been you worried that your food would run out before you had money to buy more?: never true In the past 12 mos, the food you bought just didn't last and you didn't have money to buy more?: never true Highest level of school completed/degree received: high school graduate Smoking Status: Former smoker What tobacco products do you use: cigarettes Smoking quit date/years: >15 years ago Do you use any of these nicotine containing products: None Second hand tobacco smoke exposure: No How often do you have a drink containing alcohol: monthly or less Alcohol type: wine Alcohol type details: 1 glass of wine with dinner How many standard drinks containing alcohol do you have on a typical day: 1 or 2 How often do you have six or more drinks on one occasion: Daily or almost daily AUDIT-C Alcohol total score: 5 Non-prescribed substance use: denies use Caffeine: Yes How often does anyone, including family, friends and others, physically hurt you : never How often does anyone, including family, friends and others, insult or talk down to you: never How often does anyone, including family, friends and others, threaten you with harm: never How often does anyone, including family, friends and others, scream or curse at you: never Little interest or pleasure in doing things: not at all Feeling down, depressed, or hopeless: not at all service: No Exam Narrative: Exam Narrative: Const: Well-nourished, Well-developed, in no distress Eyes: PERRL, no conjunctival injection, and symmetrical lids HENT: Atraumatic external nose and ears. Moist mucous membranes. CVS: RRR, No murmurs or gallops. Extremities: +3 right lower extremity pitting edema, +1 left left lower extremity edema. Peripheral pulses 2+ and equal in all extremities RESP: Unlabored respiratory effort. Clear to auscultation bilaterally. MSK:Extremities w/o deformity, Normal Active ROM Skin: Warm, Dry. No rashes or lesions. no erythema Neuro: Normal Muscle tone, No focal neurological deficits. Psych: Awake, Alert, & Oriented x3. Appropriate mood and affect. Const: Vital Signs, click to edit/add: Vital Signs - 24 hr 05/19/24 11:27 Temperature 98.8 F Pulse Rate [Pulse Oximeter] 81 Respiratory Rate 18 Blood Pressure [Ri ght Upper Arm] 134/78 Pulse Oximetry 94 Oxygen Delivery Me thod Room Air Course Vital Signs Vital signs: Initial Vital Signs Temperature 98.8 F 05/19/24 11:27 Temperature Source Temporal Artery Scan 05/19/24 11:27 Pulse Rate 81 05/19/24 11:27 Respiratory Rate 18 05/19/24 11:27 Blood Pressure 134/78 05/19/24 11:27 Blood Pressure Mean 96 05/19/24 11:27 Blood Pressure Position Sitting 05/19/24 11:27 Pulse Oximetry 94 05/19/24 11:27 Oxygen Delivery Method Room Air 05/19/24 11:27 Vital Signs Temperature 98.8 F 05/19/24 11:27 Pulse Rate 81 05/19/24 11:27 Respiratory Rate 18 05/19/24 11:27 Blood Pressure 134/78 05/19/24 11:27 Pulse Oximetry 94 05/19/24 11:27 Oxygen Delivery Method Room Air 05/19/24 11:27 Temperature 98.8 F 05/19/24 11:27 Pulse Rate 81 05/19/24 11:27 Respiratory Rate 18 05/19/24 11:27 Blood Pressure 134/78 05/19/24 11:27 Pulse Oximetry 94 05/19/24 11:27 Oxygen Delivery Method Room Air 05/19/24 11:27 Medical Decision Making MDM Narrative Medical decision making narrative: Patient is an 83-year-old female presenting to emergency department for right lower extremity swelling. She has some mild swelling to her left lower is there extremity. She recent had a vein ablation procedure in the left lower extremi ty. I see no erythema and I am not concerned for infection at this time. Were. Will do an ultrasound though to rule out a blood clot. Ultrasound returned showing quite a bit of edema but no DVT. This is most likely from her heart failure. She is not having any chest pain or shortness of breath at this time and vital signs are stable. I informed her to speak to her public relations studies director and see if they want to adjust her diuretics. She is agreeable to this Imaging Data Venous US: Attestation: I have reviewed the pertinent imaging results. Radiologist's impression: 1. No evidence of acute deep venous thrombosis in the right lower extremity. 2. Extensive subcutaneous edema within the right calf. Dictated by Grover Baca MD @ 05/19/2024 1:03:13 PM Discharge Plan Discharge Clinical Impression: Edema leg Patient Disposition: Home, Self-Care Condition: Stable Instructions: Leg Edema (ED) Additional Instructions: I believe your leg swelling is from your CHF. Speak to your public relations studies director and see if they want to adjust your spironolactone or torsemide. Return to emergency department for new worsening symptoms. Make sure to watch her weight closely to make sure you are not gaining too much water weight. Prescriptions: No Action spironolactone 25 mg tablet 12.5 mg PO DAILY torsemide 20 mg tablet 40 mg PO DAILY ascorbic acid (vitamin C) 500 mg capsule PO DAILY PRN Rx Instructions: unsure of strength metoprolol succinate 25 mg tablet extended release 24 hr 12.5 mg PO DAILY pramipexole 1 mg tablet 1 mg PO QHS Qty: 90 3RF Eliquis 2.5 mg tablet 2.5 mg PO BID Qty: 180 3RF potassium chloride 20 mEq tablet extended release 20 meq PO BID Qty: 180 4RF simvastatin 20 mg tablet 20 mg PO HS Qty: 90 3RF midodrine 10 mg tablet 10 mg PO TID Qty: 90 12RF Follow Up/Referrals: Gaby Duran MD [Primary Care Provider] - Stand Alone Forms: [employer] Info Instructions
== END 2024-05-19 13:55 | disposition home or self-care (01) ==
PROVIDERS: Emergency Provider Student in an Organized Health Care Education/Training Program; PCP Family Medicine
DX: R60.9 Edema, unspecified (principal)
CPT/HCPCS: 93971; 99282; 99283; 99284

== ENCOUNTER 2024-11-26 09:16 | Outpatient (CLI) | payer MEDICARE, SELFPAY | END 2024-11-26 09:17 | disposition home or self-care (01) | PROVIDERS: PCP Family Medicine; Visit Provider Family Medicine | DX: E03.8 Other specified hypothyroidism (principal); I27.20 Pulmonary hypertension, unspecified; Z11.59 Encounter for screening for other viral diseases | CPT/HCPCS: 80053; 84443; 86803 ==

== ENCOUNTER 2024-12-07 14:11 | Outpatient (CLI) | payer MEDICARE, SELFPAY | END 2024-12-07 14:12 | disposition home or self-care (01) | LOC: NFLDREF 12-09 06:48 | PROVIDERS: PCP Family Medicine; Referring Provider Family Medicine; Visit Provider Family Medicine | DX: E83.51 Hypocalcemia (principal); I48.91 Unspecified atrial fibrillation; I50.9 Heart failure, unspecified; I42.2 Other hypertrophic cardiomyopathy | CPT/HCPCS: 80053; 82306; 83970 ==

== ENCOUNTER 2025-03-16 12:21 | Outpatient (CLI) | payer MEDICARE, SELFPAY | END 2025-03-16 12:22 | disposition home or self-care (01) | PROVIDERS: PCP Family Medicine; Visit Provider Family Medicine | DX: R79.89 Other specified abnormal findings of blood chemistry (principal); E83.51 Hypocalcemia; E03.8 Other specified hypothyroidism; I27.20 Pulmonary hypertension, unspecified; I50.9 Heart failure, unspecified | CPT/HCPCS: 80053; 82306; 83880; 83970 ==

== ENCOUNTER 2025-04-05 11:03 | Outpatient (CLI) | payer MEDICARE, SELFPAY | END 2025-04-05 11:04 | disposition home or self-care (01) | LOC: NFLDREF 04-08 04:12 | PROVIDERS: PCP Family Medicine; Referring Provider Family Medicine; Visit Provider Physician Assistant Medical | DX: I50.9 Heart failure, unspecified (principal); I42.2 Other hypertrophic cardiomyopathy; Z95.810 Presence of automatic (implantable) cardiac defibrillator | CPT/HCPCS: 80048 ==